=== PATIENT | female | born 1965 | race Caucasian/White ===

== ENCOUNTER 2017-10-21 08:09 | Emergency (ER) | payer OTHER ==
[2017-10-21] MEDS ORDERED: CYCLOBENZAPRINE 10 MG TAB ONE (09:09)
--- NOTE | 2017-10-21 09:11 | EDPHYS ---
Physician Documentation [facility] Name: Ariella Alexadnre Age: 52 yrs Sex: Female : 1965 Arrival Date: 10/21/2017 Time: 08:13 Bed 14 Private MD: Zachary Chacon E ED Physician Terrence Montoya HPI: 10/21 08:42 This 52 yrs old Female presents to ER via Ambulatory with complaints of Back rn Pain. 08:42 The patient presents with pain that is chronic. The symptoms are located in the low rn back. Onset: The symptoms/episode began/occurred 4 day(s) ago. The pain does not radiate. Associated signs and symptoms: Pertinent positives: none Pertinent negatives: abdominal pain, constipation, dysuria, fever, hematuria, incontinence, nausea, numbness, tingling, urinary retention, vomiting, weakness. Severity of symptoms: At their worst the symptoms were moderate, in the emergency department the symptoms are unchanged. The patient has experienced similar episodes in the past. Reports happens from time to time, + chronic back pain, worse over last few days, no new trauma, no fever, no IV drug use, no radiation to right leg, no bowel/bladder complaints. 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 - Social history:: Smoking status: Patient uses tobacco products, Patient/guardian denies using alcohol. - Ebola Screening: : Patient negative for fever greater than or equal to 101.5 degrees Fahrenheit, and additional compatible Ebola Virus Disease symptoms Patient denies exposure to infectious person Patient denies travel to an Ebola-affected area in the 21 days before illness onset. - Family history:: not pertinent. - Hospitalizations: : No recent hospitalization is reported. ROS: 08:42 Constitutional: Negative for fever, chills, and weight loss, Eyes: Negative for injury, rn pain, redness, and discharge, Neck: Negative for injury, pain, and swelling, Cardiovascular: Negative for chest pain, palpitations, and edema, Respiratory: Negative for shortness of breath, cough, wheezing, and pleuritic chest pain, Abdomen/GI: Negative for abdominal pain, nausea, vomiting, diarrhea, and constipation, Back: Negative for injury MS/Extremity: Negative for injury and deformity, Skin: Negative for injury, rash, and discoloration, Neuro: Negative for headache, weakness, numbness, tingling, and seizure. Exam: 08:42 Constitutional: This is a well developed, well nourished patient who is awake, alert, rn and in no acute distress. Back: No spinal tenderness. + right perilumbar tenderness, no bony tenderness MS/ Extremity: Pulses equal, no cyanosis. Neurovascular intact. Full, normal range of motion. Equal circumference. Neuro: Awake and alert, GCS 15, oriented to person, place, time, and situation. Cranial nerves II-XII grossly intact. Motor strength 5/5 in all extremities. Sensory grossly intact. Vital Signs: 08:19 BP 107 / 66; Pulse 65; Resp 18; Temp 97.5(O); Pulse Ox 97% on R/A; Weight 108.86 kg; hj Height 5 ft. 7 in. (170.18 cm); Pain 8/10; 08:19 Body Mass Index 37.59 (108.86 kg, 170.18 cm) hj MDM: 08:22 Patient medically screened. rn 09:10 Differential diagnosis: chronic back pain, Fatigue muscle spasm. Data reviewed: vital rn signs, nurses notes, lab test result(s), and as a result, I will discharge patient. Counseling: I had a detailed discussion with the patient and/or guardian regarding: the historical points, exam findings, and any diagnostic results supporting the discharge/admit diagnosis, the need for outpatient follow up, to return to the emergency department if symptoms worsen or persist or if there are any questions or concerns that arise at home. Special discussion: I discussed with the patient/guardian in detail that at this point there is no indication for admission to the hospital. It is understood, however, that if the symptoms persist or worsen the patient needs to return immediately for re-evaluation. 10/21 08:53 Order name: Urine Dipstick--Ancillary (enter results); Complete Time: 09:45 ag 10/21 08:53 Order name: Urine --Ancillary (enter results); Complete Time: 09:45 ag Administered Medications: 09:10 Drug: Flexeril 10 mg Route: PO; ae1 09:22 Drug: Demerol 25 mg Route: IM; Site: right gluteus; ae1 Disposition: 10/21/17 09:10 Discharged to Home. Impression: Muscle spasm of back. - Condition is Stable. - Discharge Instructions: Muscle Cramps and Spasms. - Prescriptions for Ibuprofen 800 mg Oral Tablet - take 1 tablet by ORAL route every 12 hours As needed take with food; 20 tablet. Cyclobenzaprine 10 mg Oral Tablet - take 1 tablet by ORAL route every 8 hours As needed; 15 tablet. Medrol (Alfred) 4 mg Oral Tablets, Dose Pack - take 1 tablet by ORAL route as directed - follow package instructions; 1 packet. - Medication Reconciliation Form, Thank You Letter, Antibiotic Education, Prescription Opioid Use form. - Follow up: Private Physician; When: As needed; Reason: Recheck today's complaints, Re-evaluation by your physician. - Problem is chronic. - Symptoms have improved. Signatures: Dispatcher [employer] EDTerrence Morejon MD MD rn Joaquin, Henry, RN RN hj Elliott, Andrea, RN RN ae1 Corrections: (The following items were deleted from the chart) 10:05 09:10 10/21/2017 09:10 Discharged to Home. Impression: Muscle spasm of back. Condition ae1 is Stable. Forms are Medication Reconciliation Form, Thank You Letter, Antibiotic Education, Prescription Opioid Use. Follow up: Private Physician; When: As needed; Reason: Recheck today's complaints, Re-evaluation by your physician. Problem is chronic. Symptoms have improved. rn
--- NOTE | 2017-10-21 09:11 | ER ---
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 Transition of care: patient was not received from another setting of care. Onset of symptoms was October 21, 2017. Risk Assessment: Do you want to hurt yourself or someone else? Patient reports no desire to harm self or others. Initial Sepsis Screen: Does the patient meet any 2 criteria? No. Patient's initial sepsis screen is negative. Does the patient have a suspected source of infection? No. Patient's initial sepsis screen is negative. Care prior to arrival: None. 08:14 Method Of Arrival: Ambulatory 08:14 Acuity: DAHIANA 4 hj Triage Assessment: 08:18 General: Appears in no apparent distress. uncomfortable, Behavior is calm, cooperative, hj appropriate for age. Pain: Complains of pain in left low back and right low back. Musculoskeletal: Circulation, motion, and sensation intact. Capillary refill. 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 - Social history:: Smoking status: Patient uses tobacco products, Patient/guardian denies using alcohol. - Ebola Screening: : Patient negative for fever greater than or equal to 101.5 degrees Fahrenheit, and additional compatible Ebola Virus Disease symptoms Patient denies exposure to infectious person Patient denies travel to an Ebola-affected area in the 21 days before illness onset. - Family history:: not pertinent. - Hospitalizations: : No recent hospitalization is reported. Screenin:18 Abuse screen: Denies threats or abuse. Denies injuries from another. Nutritional hj screening: No deficits noted. Tuberculosis screening: No symptoms or risk factors identified. Fall Risk None identified. Assessment: 08:20 General: Appears uncomfortable, obese, Behavior is calm, cooperative. Pain: Complains ae1 of pain in right mid back and right low back Pain currently is 10 out of 10 on a pain scale. Neuro: Level of Consciousness is awake, alert, obeys commands. Cardiovascular: Patient's skin is warm and dry. Respiratory: Airway is patent Respiratory effort is even, unlabored, Respiratory pattern is regular, symmetrical. GI: Abdomen is round obese. : No signs and/or symptoms were reported regarding the genitourinary system. EENT: No signs and/or symptoms were reported regarding the EENT system. Derm: Skin is normal. Musculoskeletal: Reports pain in right mid back and right low back no visible swelling, redness. Vital Signs: 08:19 BP 107 / 66; Pulse 65; Resp 18; Temp 97.5(O); Pulse Ox 97% on R/A; Weight 108.86 kg; hj Height 5 ft. 7 in. (170.18 cm); Pain 8/10; 08:19 Body Mass Index 37.59 (108.86 kg, 170.18 cm) ED Course: 08:13 Patient arrived in ED. mr 08:13 Zachary Chacon MD is Private Physician. mr 08:16 Triage completed. hj 08:19 Arm band placed on left wrist. hj 08:21 Daniel Lopez RN is Primary Nurse. ae1 08:21 Patient has correct armband on for positive identification. Bed in low position. Call light in reach. Side rails up X 1. 08:22 Terrence Montoya MD is Attending Physician. rn 08:55 Urine --Ancillary (enter results) Sent. 5 08:55 Urine Dipstick--Ancillary (enter results) Sent. 5 09:04 Urine collected: clean catch specimen, cloudy. 5 09:55 No provider procedures requiring assistance completed. Patient did not have IV access ae1 during this emergency room visit. Administered Medications: : Drug: Flexeril 10 mg Route: PO; ae1 09:22 Drug: Demerol 25 mg Route: IM; Site: right gluteus; ae1 Outcome: : Discharge ordered by . rn 09:55 Discharged to home via wheelchair. ae1 :55 Condition: stable 09:55 Discharge instructions given to patient, Instructed on discharge instructions, follow up and referral plans. medication usage, Demonstrated understanding of instructions, Prescriptions given X 3. 10:05 Patient left the ED. ae1 Signatures: Daisy Beck Roman, MD MD rn Joaquin, Henry, RN RN hj Elliott, Andrea, RN RN 1 Daisy Mata [facility]
[2017-10-21] MEDS ORDERED: MEPERIDINE HCL 25 MG/0.5 ML ONE (09:18)
[2017-10-21 09:35] LABS: Urine Blood TRACE (NEG); Urine Glucose NEGATIVE (NEG); Urine Protein NEGATIVE (NEG); Urine Specific Gravity 1.025 (1.005-1.030)
[2017-10-21 10:09] VITALS: BP 107/66; TEMP 97.5; O2SAT 97
== END 2017-10-21 10:05 | disposition home or self-care (01) ==
LOC: ER 08:09
DX: M62.830 Muscle spasm of back (principal); I10 Essential (primary) hypertension; F17.200 Nicotine dependence, unspecified, uncomplicated; Z88.6 Allergy status to analgesic agent
CPT/HCPCS: 81003; 81025; 96372; 99283; J2175

== ENCOUNTER 2018-02-24 16:45 | Emergency (ER) | payer OTHER ==
[2018-02-24] MEDS ORDERED: MORPHINE 4 MG/ML SYR ONE (18:39)
[2018-02-24] MEDS ORDERED: CEFTRIAXONE/SWI 1gm 1 GM/10 ML SYR ONE (18:39)
[2018-02-24] MEDS ORDERED: ONDANSETRON 4 MG/2 ML VIAL ONE (18:39)
--- NOTE | 2018-02-24 18:49 | RAD REPORT ---
EXAM DESCRIPTION: CT - Stone Protocol - 02/24/2018 6:33 pm CLINICAL HISTORY: Abdominal pain. Left flank pain for 1 week COMPARISON: 2011 TECHNIQUE: Computed axial tomography of the abdomen pelvis was obtained without oral or IV contrast. Lack of IV and oral contrast limits evaluation of solid organs, bowel, and vessels. Coronal reformat sara images were obtained and reviewed. All CT scans are performed using dose optimization technique as appropriate and may include automated exposure control or mA/KV adjustment according to patient size. FINDINGS: A renal calculus is not seen. An ureteral calculus is not noted. A bladder calculus is not present. Minimal left hydronephrosis or small parapelvic cysts. The liver, spleen, pancreas and adrenals appear grossly normal There is no evidence of diverticulitis. An adnexal mass is not seen. Small umbilical hernia. IMPRESSION: Negative for a genitourinary calculus Minimal left hydronephrosis versus small parapelvic cysts
[2018-02-24 19:12] LABS: Urine Blood TRACE (NEG); Urine Glucose NEGATIVE (NEG); Urine Protein NEGATIVE (NEG); Urine pH 5.5 (5.0-7.0)
[2018-02-24] MEDS ORDERED: DIPHENHYDRAMINE 25 MG TAB/CAP ONE (19:48)
[2018-02-24 19:56] LABS: Absolute Lymphocytes (CBC) 2.3 K/uL (0.7-4.9); Absolute Monocytes 0.5 K/uL (0.1-1.3); Absolute Neutrophil 4.3 K/uL (1.8-8.0); Basophils % 0.4 % (0-1.3); Eosinophils % 3.6 % (0-4.4); Hematocrit 39.3 % (36.0-45.0); MCH 32.1 pg (27.0-35.0); MCV 93.5 fL (80-100); MPV 8.7 fL (7.6-11.3); Monocytes % 6.6 % (3.3-12.3)
[2018-02-24 20:22] LABS: Albumin 3.9 g/dL (3.4-5.0); Bilirubin Direct 0.1 mg/dL (0-0.2); Bilirubin Total 0.3 mg/dL (0.2-1.0); Potassium 3.6 mmol/L (3.5-5.1)
[2018-02-24 22:02] LABS: Urine Bacteria 20-50 /HPF (<20); Urine Culture Reflex Order REFLEXED; Urine RBC NONE SEEN /HPF (NONE SEEN)
--- NOTE | 2018-02-24 22:25 | EDPHYS ---
Physician Documentation [facility] Name: Ariella Alexandre Age: 52 yrs Sex: Female : 1965 Arrival Date: 02/24/2018 Time: 16:47 Bed 24 Private MD: Zachary Chacon E ED Physician Leodan Case HPI: 02/24 22:21 This 52 yrs old Female presents to ER via Ambulatory with complaints of Flank gs Pain. 22:21 The patient complains of pain in the left low back. Onset: The symptoms/episode gs began/occurred 1 week(s) ago. Associated signs and symptoms: Pertinent positives: nausea, Pertinent negatives: fever. Severity of pain: At its worst the pain was moderate in the emergency department the pain is unchanged. The patient has experienced similar episodes in the past, a few times. The patient has been recently seen by a physician: the patient's primary care provider, with similar presenting complaints. 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 - Social history:: Smoking status: Patient uses tobacco products, smokes one-half pack cigarettes per day. - Ebola Screening: : Patient negative for fever greater than or equal to 101.5 degrees Fahrenheit, and additional compatible Ebola Virus Disease symptoms Patient denies exposure to infectious person Patient denies travel to an Ebola-affected area in the 21 days before illness onset No symptoms or risks identified at this time. ROS: 22:21 All other systems are negative. gs 02/25 13:47 Constitutional: Negative for fever, chills, and weight loss. kdr Exam: 02/24 22:21 Chest/axilla: Normal chest wall appearance and motion. Nontender with no deformity. gs No lesions are appreciated. Cardiovascular: Regular rate and rhythm with a normal S1 and S2. No gallops, murmurs, or rubs. Normal PMI, no JVD. No pulse deficits. Respiratory: Lungs have equal breath sounds bilaterally, clear to auscultation and percussion. No rales, rhonchi or wheezes noted. No increased work of breathing, no retractions or nasal flaring. Abdomen/GI: Soft, non-tender, with normal bowel sounds. No distension or tympany. No guarding or rebound. No evidence of tenderness throughout. Skin: Warm, dry with normal turgor. Normal color with no rashes, no lesions, and no evidence of cellulitis. MS/ Extremity: Pulses equal, no cyanosis. Neurovascular intact. Full, normal range of motion. Neuro: Awake and alert, GCS 15, oriented to person, place, time, and situation. Cranial nerves II-XII grossly intact. Motor strength 5/5 in all extremities. Sensory grossly intact. Cerebellar exam normal. Normal gait. Constitutional: The patient appears in no acute distress, alert, awake. Back: CVA tenderness, that is moderate, is noted on the left. Vital Signs: 16:52 BP 128 / 51; Pulse 77; Resp 20; Temp 98.3; Pulse Ox 99% on R/A; Weight 105.69 kg; aj Height 5 ft. 7 in. (170.18 cm); 19:54 BP 119 / 65; Pulse 65; Resp 18; Pulse Ox 98% on R/A; tl3 21:26 BP 114 / 64; Pulse 64; Resp 20; Pulse Ox 97% ; tl3 22:39 BP 120 / 80; Pulse 64; Resp 18; Pulse Ox 98% on R/A; tl3 16:52 Body Mass Index 36.49 (105.69 kg, 170.18 cm) aj MDM: 19:15 Patient medically screened. gs 22:21 Differential diagnosis: nephrolithiasis, pyelonephritis, UTI. Data reviewed: vital gs signs, nurses notes. Counseling: I had a detailed discussion with the patient and/or guardian regarding: the historical points, exam findings, and any diagnostic results supporting the discharge/admit diagnosis, lab results, radiology results, the need for outpatient follow up, a urologist. Response to treatment: the patient's symptoms have markedly improved after treatment, and as a result, I will discharge patient. 02/24 18:16 Order name: Basic Metabolic Panel; Complete Time: 20:38 kdr 02/24 18:16 Order name: CBC with Diff; Complete Time: 20:38 kdr 02/24 18:16 Order name: Creatinine for Radiology; Complete Time: 20:38 kdr 02/24 18:16 Order name: Hepatic Function; Complete Time: 20:38 kdr 02/24 18:16 Order name: Lipase; Complete Time: 20:38 kdr 02/24 18:26 Order name: Urine Dipstick--Ancillary (enter results) bd 02/24 18:16 Order name: CT Stone Protocol; Complete Time: 19:01 kdr 02/24 18:35 Order name: Urine Dipstick-Ancillary; Complete Time: 20:38 EDMS 02/24 20:44 Order name: Urine Microscopic Only; Complete Time: 22:20 gs 02/24 18:16 Order name: IV Saline Lock; Complete Time: 19:47 kdr 02/24 18:16 Order name: Labs collected and sent; Complete Time: 19:47 kdr Administered Medications: 19:45 Drug: morphine 4 mg Route: IVP; Infused Over: 2 mins; Site: right wrist; tl3 19:57 Follow up: Response: No adverse reaction tl3 19:45 Drug: Zofran 4 mg Route: IVP; Infused Over: 2 mins; Site: right wrist; tl3 19:57 Follow up: Response: No adverse reaction tl3 19:46 Drug: Rocephin - (cefTRIAXone) 1 grams Route: IVPB; Infused Over: 5 mins; Site: right tl3 wrist; Delivery: Primary tubing; 19:46 Follow up: IV Status: Completed infusion; IV Intake: 20ml tl3 19:47 Drug: Benadryl 50 mg Route: PO; tl3 19:57 Follow up: Response: No adverse reaction tl3 22:43 Drug: TORadol 30 mg Route: IVP; Infused Over: 1 mins; Site: right wrist; tl3 22:43 Follow up: Response: Medication administered at discharge. tl3 Disposition: 02/24/18 22:24 Discharged to Home. Impression: Acute tubulo-interstitial nephritis. - Condition is Stable. - Discharge Instructions: Pyelonephritis, Adult. - Prescriptions for Keflex 500 mg Oral Capsule - take 1 capsule by ORAL route 3 times per day for 7 days; 21 capsule. - Medication Reconciliation Form, Thank You Letter, Antibiotic Education, Prescription Opioid Use form. - Follow up: Private Physician; When: 2 - 3 days; Reason: Re-evaluation by your physician. Follow up: Malou Medina MD; When: 2 - 3 days; Reason: Re-evaluation by your physician. Signatures: Dispatcher [employer] EDMS Susan Bonilla RN RN Alessio Ponce MD MD [facility] Leodan Case MD MD gs Lowrey, Tammy, RN RN tl3 Corrections: (The following items were deleted from the chart) 22:44 22:24 02/24/2018 22:24 Discharged to Home. Impression: Acute tubulo-interstitial tl3 nephritis. Condition is Stable. Forms are Medication Reconciliation Form, Thank You Letter, Antibiotic Education, Prescription Opioid Use. Follow up: Private Physician; When: 2 - 3 days; Reason: Re-evaluation by your physician. Follow up: Malou Medina; When: 2 - 3 days; Reason: Re-evaluation by your physician.
--- NOTE | 2018-02-24 22:25 | ER ---
Nurse's Notes [facility] Name: Ariella Alexandre Age: 52 yrs Sex: Female : 1965 Arrival Date: 02/24/2018 Time: 16:47 Bed 24 Private MD: Zachary Chacon E Diagnosis: Acute tubulo-interstitial nephritis Presentation: 02/24 16:50 Presenting complaint: Patient states: Left flank pain for 1 week. Seen by PCP Thursday, aj CT in AM. Transition of care: patient was not received from another setting of care. Onset of symptoms was January 17, 2018. Risk Assessment: Do you want to hurt yourself or someone else? Patient reports no desire to harm self or others. Initial Sepsis Screen: Does the patient meet any 2 criteria? No. Patient's initial sepsis screen is negative. Does the patient have a suspected source of infection? No. Patient's initial sepsis screen is negative. Care prior to arrival: None. 16:50 Method Of Arrival: Ambulatory aj 16:50 Acuity: DAHIANA 3 aj Triage Assessment: 16:52 General: Appears in no apparent distress. comfortable, Behavior is calm, cooperative, aj appropriate for age. Pain: Complains of pain in posterior aspect of left lateral abdomen and anterior aspect of left lateral abdomen. Neuro: Level of Consciousness is awake, alert, obeys commands, Oriented to person, place, time, situation, Appropriate for age. Respiratory: Airway is patent Respiratory effort is even, unlabored, Respiratory pattern is regular, symmetrical. : Reports pain in left flank(s). Derm: Skin is intact, is healthy with good turgor, Skin is pink, warm \T\ dry. normal. 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 - Social history:: Smoking status: Patient uses tobacco products, smokes one-half pack cigarettes per day. - Ebola Screening: : Patient negative for fever greater than or equal to 101.5 degrees Fahrenheit, and additional compatible Ebola Virus Disease symptoms Patient denies exposure to infectious person Patient denies travel to an Ebola-affected area in the 21 days before illness onset No symptoms or risks identified at this time. Screenin:12 Abuse screen: Denies threats or abuse. Nutritional screening: No deficits noted. tl3 Tuberculosis screening: No symptoms or risk factors identified. Fall Risk None identified. Assessment: 18:12 General: Appears uncomfortable, well groomed, well developed, well nourished, Behavior tl3 is calm, cooperative, appropriate for age. Pain: Complains of pain in abdomen and anterior aspect of left lateral abdomen and posterior aspect of left lateral abdomen. Neuro: Level of Consciousness is awake, alert, obeys commands, Oriented to person, place, time, situation, Appropriate for age. Cardiovascular: Patient's skin is warm and dry. Respiratory: Airway is patent Respiratory effort is even, unlabored, Respiratory pattern is regular, symmetrical. GI: No signs and/or symptoms were reported involving the gastrointestinal system. : No signs and/or symptoms were reported regarding the genitourinary system. Urine is clear. EENT: No signs and/or symptoms were reported regarding the EENT system. Derm: No signs and/or symptoms reported regarding the dermatologic system. Musculoskeletal: No signs and/or symptoms reported regarding the musculoskeletal system. 19:54 Reassessment: No changes from previously documented assessment. Patient and/or family tl3 updated on plan of care and expected duration. Pain level reassessed. 21:26 Reassessment: Patient appears in no apparent distress at this time. No changes from tl3 previously documented assessment. Patient and/or family updated on plan of care and expected duration. Pain level reassessed. Patient is alert, oriented x 3, equal unlabored respirations, skin warm/dry/pink. 22:39 Reassessment: No changes from previously documented assessment. Patient and/or family tl3 updated on plan of care and expected duration. Pain level reassessed. Patient is alert, oriented x 3, equal unlabored respirations, skin warm/dry/pink. Dr Case at bedside discussing POC. Vital Signs: 16:52 BP 128 / 51; Pulse 77; Resp 20; Temp 98.3; Pulse Ox 99% on R/A; Weight 105.69 kg; aj Height 5 ft. 7 in. (170.18 cm); 19:54 BP 119 / 65; Pulse 65; Resp 18; Pulse Ox 98% on R/A; tl3 21:26 BP 114 / 64; Pulse 64; Resp 20; Pulse Ox 97% ; tl3 22:39 BP 120 / 80; Pulse 64; Resp 18; Pulse Ox 98% on R/A; tl3 16:52 Body Mass Index 36.49 (105.69 kg, 170.18 cm) aj ED Course: 16:47 Patient arrived in ED. mr 16:48 Zachary Chacon MD is Private Physician. mr 16:51 Triage completed. aj 16:52 Arm band placed on left wrist. Patient placed in waiting room, Patient notified of wait aj time. 17:52 Alessio Tabares MD is Attending Physician. kdr 18:12 Nubia Azar, DECLAN is Primary Nurse. tl3 18:12 ED physician to see patient. DR Tabares at bedside for assessment. tl3 18:12 Patient has correct armband on for positive identification. Bed in low position. Call tl3 light in reach. Side rails up X 1. Adult w/ patient. Pulse ox on. NIBP on. 18:12 No provider procedures requiring assistance completed. tl3 18:[address] 18:32 CT completed. Patient tolerated procedure well. Patient moved back from CT. vm2 18:35 CT Stone Protocol In Process Unspecified. EDMS 18:55 Missed attempt(s): 24 gauge in left forearm. antecubital area. Bleeding controlled, jp3 band aid applied, catheter tip intact. 19:01 Attending Physician role handed off by Alessio Tabares MD gs 19:01 Leodan Case MD is Attending Physician. gs 19:44 Urine Dipstick--Ancillary (enter results) Sent. tl3 19:54 Initial lab(s) drawn, by mo, sent to lab. Inserted saline lock: 24 gauge in right tl3 wrist, using aseptic technique. Blood collected. 22:24 Malou Medina MD is Referral Physician. gs 22:39 IV discontinued, intact, bleeding controlled, No redness/swelling at site. Pressure tl3 dressing applied. Administered Medications: 19:45 Drug: morphine 4 mg Route: IVP; Infused Over: 2 mins; Site: right wrist; tl3 19:57 Follow up: Response: No adverse reaction tl3 19:45 Drug: Zofran 4 mg Route: IVP; Infused Over: 2 mins; Site: right wrist; tl3 19:57 Follow up: Response: No adverse reaction tl3 19:46 Drug: Rocephin - (cefTRIAXone) 1 grams Route: IVPB; Infused Over: 5 mins; Site: right tl3 wrist; Delivery: Primary tubing; 19:46 Follow up: IV Status: Completed infusion; IV Intake: 20ml tl3 19:47 Drug: Benadryl 50 mg Route: PO; tl3 19:57 Follow up: Response: No adverse reaction tl3 22:43 Drug: TORadol 30 mg Route: IVP; Infused Over: 1 mins; Site: right wrist; tl3 22:43 Follow up: Response: Medication administered at discharge. tl3 Intake: 19:46 IV: 20ml; Total: 20ml. tl3 Outcome: 22:24 Discharge ordered by . 22:39 Discharged to home ambulatory. tl3 22:39 Condition: stable 22:39 Discharge instructions given to patient, Instructed on discharge instructions, follow up and referral plans. medication usage, Demonstrated understanding of instructions, follow-up care, medications, Prescriptions given X 1. 22:44 Patient left the ED. tl3 Signatures: Dispatcher [employer] Susan Zamudio RN RN aj Rittger, Kevin, MD MD kdr Rivera, Mary mr Hagler, Ervin eh McGuire, Victoria 2 Leodan Case MD MD gs Lowrey, Tammy, RN RN tl3 Izaiah Shirley jp3 Corrections: (The following items were deleted from the chart) 19:55 19:54 Missed attempt(s): 24 gauge in left forearm. antecubital area. Bleeding jp3 controlled, band aid applied, catheter tip intact. jp3
[2018-02-24] MEDS ORDERED: KETOROLAC 30 MG/ML INJ ONE (22:37)
[2018-02-24 23:32] VITALS: TEMP 98.3
[2018-02-24 23:37] VITALS: BP 120/80; O2SAT 98
== END 2018-02-24 22:44 | disposition home or self-care (01) ==
LOC: ER 16:45
DX: N10 Acute pyelonephritis (principal); I10 Essential (primary) hypertension; F17.210 Nicotine dependence, cigarettes, uncomplicated; Z79.82 Long term (current) use of aspirin; Z88.5 Allergy status to narcotic agent
CPT/HCPCS: 36415; 74176; 76377; 80048; 80076; 83690; 85025; 96374; 96375; 99284; J0696; J2405; 81003; 81015

== ENCOUNTER 2018-11-28 12:43 | Emergency (ER) | payer OTHER ==
--- OUTSIDE RECORDS SUMMARY | 2018-11-28 12:46 | XMS REPORT ---
:1965 [facility] Address [address] [place] [address] Dr. Alejo. [address] [place] [id number] Care Team Providers Name Role Phone Unavailable Unavailable Unavailable Problems This patient has no known problems. Allergies, Adverse Reactions, Alerts This patient has no known allergies or adverse reactions. Medications This patient has no known medications.
--- OUTSIDE RECORDS SUMMARY | 2018-11-28 12:46 | XMS REPORT | Summary of Care ---
:1965 Author Organization [facility] Address [address] [place] [id number] Care Team Providers Name Role Phone 1, Adc Lab Unavailable Unavailable Florinda Leal [facility] Primary Care Provider Reason for Referral MRI/CAT Scan (Routine) Status Reason Specialty Diagnoses / Referred By Referred To Procedures Contact Contact Closed Diagnostic Diagnoses Dizziness Nia Payton, Radiology Procedures MR BRAIN W WO CONTRAST [address] [place] [address] MRI/CAT Scan (Routine) Status Reason Specialty Diagnoses / Referred By Referred To Procedures Contact Contact Closed Diagnostic Diagnoses Dizziness Nia Payton, Radiology Procedures MR BRAIN W WO CONTRAST [address] [place] [address] Reason for Visit MRI/CAT Scan (Routine) Status Reason Specialty Diagnoses / Referred By Referred To Procedures Contact Contact Closed Diagnostic Diagnoses Dizziness Nia Payton, Radiology Procedures MR BRAIN W CHERRY CONTRAST [address] [place] [address] Encounter Details Date Type Department Care Team Description 11/18/2018 Hospital Encounter [facility] Nia Payton, [facility] MRI [address] [id number] [phone] Allergies Active Allergy Reactions Severity Noted Date Comments Codeine Rash 07/29/2012 documented as of this encounter (statuses as of 11/19/2018) Medications Medication Sig Dispensed Refills Start Date End Date Status atenolol (TENORMIN) 25 Take 25 mg by 0 Active mg tablet mouth daily. esomeprazole (NEXIUM) 40 Take 40 mg by 0 Active mg capsule mouth daily with breakfast. aspirin 81 mg chewable Take 81 mg by 0 Active tablet mouth daily. OLMESARTAN/AMLODIPIN/HCT Take by mouth. 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 documented as of this encounter Last Filed Vital Signs Vital Sign Reading Time Taken Comments Blood Pressure 115/48 11/18/2018 11:25 AM CDT Pulse 59 11/18/2018 11:25 AM CDT Temperature - - Respiratory Rate 18 11/18/2018 11:25 AM CDT Oxygen Saturation 98% 11/18/2018 11:25 AM CDT Inhaled Oxygen Concentration - - Weight 104.3 kg (230 lb) 11/18/2018 11:25 AM CDT Height - - Body Mass Index 36.02 11/01/2018 11:21 AM CDT documented in this encounter Plan of Treatment Health Maintenance Due Date Last Done Comments HEPATITIS C (HCV) SCREEN 1965 PNEUMOCOCCAL 0-64 YEARS COMBINED 1969 SERIES (1 of 1 - PPSV23) DTaP,Tdap,and Td Vaccines (1 - 2004 04/13/2004 Tdap) COLONOSCOPY 2013 Zoster Recombinant Vaccine 2013 (SHINGRIX) (1 of 2) LUNG CANCER SCREEN: Recommended 2018 for age 55-80 with 30 + pack year history INFLUENZA VACCINE 12/12/2018 MAMMOGRAM 06/10/2019 06/10/2018 PAP SMEAR 05/27/2021 05/27/2018, 07/29/2012, 06/22/2009, Additional history exists documented as of this encounter Procedures Procedure Name Priority Date/Time Associated Diagnosis Comments MR BRAIN W WO Routine 11/18/2018 12:37 PM Dizziness Results for this CONTRAST CDT procedure are in the results section. documented in this encounter Results MR BRAIN W WO CONTRAST (11/18/2018 12:37 PM CDT) Specimen Impressions Performed At PACS/VR/DOSE No acute intracranial abnormality. White matter changes related to chronic small vessel ischemic disease. Trace left mastoid effusion. Akash Espinoza have reviewed this study and agree with the above report. Damaris Espinoza MD., have reviewed this study and agree with the above report. Narrative Performed At * * * * * * * * ORIGINAL REPORT * * * * * * * * PACS/VR/DOSE MR BRAIN W WO CONTRAST COMPARISON: None HISTORY: Neuro deficit(s), subacute; Mild headache, mild positional vertigo, arm pain and right leg numbness (below the knee) per chart review. TECHNIQUE: Multisequence multiplanar MR images of the brain were obtained before and after administration of 20 mL IV Dotarem. FINDINGS: The ventricles and cerebral sulci are normal in caliber and configuration. No midline shift, hydrocephalus or pathological extra-axial fluid collection is present. The basal cisterns are unremarkable. No restricted diffusion is present to suggest acute infarct. Scattered periventricular foci of T2 prolongation are nonspecific but likely reflect small vessel ischemic disease. There is no abnormal parenchymal enhancement. No abnormal gradient blooming. The T2 flow voids for the major intracranial vessels are unremarkable. The paranasal sinuses are clear. Trace left mastoid effusion is noted. Procedure Note [facility], Radiant Results Inft User - 11/18/2018 1:55 PM CDT * * * * * * * * ORIGINAL REPORT * * * * * * * * MR BRAIN W WO CONTRAST COMPARISON: None HISTORY: Neuro deficit(s), subacute; Mild headache, mild positional vertigo, arm pain and right leg numbness (below the knee) per chart review. TECHNIQUE: Multisequence multiplanar MR images of the brain were obtained before and after administration of 20 mL IV Dotarem. FINDINGS: The ventricles and cerebral sulci are normal in caliber and configuration. No midline shift, hydrocephalus or pathological extra-axial fluid collection is present. The basal cisterns are unremarkable. No restricted diffusion is present to suggest acute infarct. Scattered periventricular foci of T2 prolongation are nonspecific but likely reflect small vessel ischemic disease. There is no abnormal parenchymal enhancement. No abnormal gradient blooming. The T2 flow voids for the major intracranial vessels are unremarkable. The paranasal sinuses are clear. Trace left mastoid effusion is noted. IMPRESSION No acute intracranial abnormality. White matter changes related to chronic small vessel ischemic disease. Trace left mastoid effusion. Akash Espinoza have reviewed this study and agree with the above report. Akash Espinoza MD., have reviewed this study and agree with the above report. Performing Organization Address City/State/Zipcode Phone Number PACS/VR/DOSE documented in this encounter Visit Diagnoses Diagnosis Dizziness Dizziness and giddiness documented in this encounter Administered Medications Medication Order MAR Action Action Date Dose Rate Site gadoterate meglumine (DOTAREM-20 Given 11/18/2018 12:18 PM CDT 20 mL mL) injection 20.86 mL 20.86 mL (0.2 mL/kg 104.3 kg), Intravenous, ONCE, 1 dose, Hollie 11/18/18 at 1230, Routine LORazepam (ATIVAN) tablet 2 mg Given 11/18/2018 11:29 AM CDT 2 mg 2 mg, Oral, ONCE, 1 dose, Hollie 11/18/18 at 1230, Routine documented in this encounter Insurance Payer Benefit Plan / Subscriber ID Effective Dates Phone Address Type Group MEDICARE MEDICARE PART xxxxxxxxxxx 2004-Janet [phone] 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
[2018-11-28] MEDS ORDERED: CLINDAMYCIN HCL 150 MG CAP ONE (14:44)
[2018-11-28] MEDS ORDERED: KETOROLAC 30 MG/ML INJ ONE (14:44)
--- NOTE | 2018-11-28 14:52 | EDPHYS ---
Physician Documentation [facility] Name: Ariella Alexandre Age: 53 yrs Sex: Female : 1965 Arrival Date: 11/28/2018 Time: 12:46 Bed 20 Private MD: ED Physician Leodan Case HPI: 11/28 14:41 This 53 yrs old Female presents to ER via Ambulatory with complaints of Jaw snw Swelling. 14:41 The patient presents with broken tooth/teeth, pain. The problem is located in the lower snw left first molar (#19) and lower left second molar (#18) and lower left third molar (#17). Onset: The symptoms/episode began/occurred suddenly, this morning. Duration: The symptoms are continuous. Modifying factors:. Associated signs and symptoms: Pertinent positives: swelling, mandibular, mild pain. The patient has experienced a previous episode. The patient has not recently seen a physician. is having teeth removed and getting dentures. 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 - Social history:: Smoking status: . - Ebola Screening: : Patient denies travel to an Ebola-affected area in the 21 days before illness onset. ROS: 14:39 Constitutional: Negative for fever, chills, and weight loss, Eyes: Negative for injury, snw pain, redness, and discharge, ENT: Negative for injury and discharge, + mandibular edema and pain since this am Neck: Negative for injury, pain, and swelling, Cardiovascular: Negative for chest pain, palpitations, and edema, Respiratory: Negative for shortness of breath, cough, wheezing, and pleuritic chest pain, Abdomen/GI: Negative for abdominal pain, nausea, vomiting, diarrhea, and constipation, Back: Negative for injury and pain, : Negative for injury, bleeding, discharge, and swelling, MS/Extremity: Negative for injury and deformity, Skin: Negative for injury, rash, and discoloration, Neuro: Negative for headache, weakness, numbness, tingling, and seizure, Psych: Negative for depression, anxiety, suicide ideation, homicidal ideation, and hallucinations. Exam: 14:34 Constitutional: This is a well developed, well nourished patient who is awake, alert, snw and in no acute distress. 14:34 Eyes: Pupils equal round and reactive to light, extra-ocular motions intact. Lids and lashes normal. Conjunctiva and sclera are non-icteric and not injected. Cornea within normal limits. Periorbital areas with no swelling, redness, or edema. 14:34 Neck: Trachea midline, no thyromegaly or masses palpated, and no cervical lymphadenopathy. Supple, full range of motion without nuchal rigidity, or vertebral point tenderness. No Meningismus. Chest/axilla: Normal chest wall appearance and motion. Nontender with no deformity. No lesions are appreciated. Cardiovascular: Regular rate and rhythm with a normal S1 and S2. No gallops, murmurs, or rubs. Normal PMI, no JVD. No pulse deficits. Respiratory: Lungs have equal breath sounds bilaterally, clear to auscultation and percussion. No rales, rhonchi or wheezes noted. No increased work of breathing, no retractions or nasal flaring. Abdomen/GI: Soft, non-tender, with normal bowel sounds. No distension or tympany. No guarding or rebound. No evidence of tenderness throughout. Back: No spinal tenderness. No costovertebral tenderness. Full range of motion. Skin: Warm, dry with normal turgor. Normal color with no rashes, no lesions, and no evidence of cellulitis. MS/ Extremity: Pulses equal, no cyanosis. Neurovascular intact. Full, normal range of motion. Neuro: Awake and alert, GCS 15, oriented to person, place, time, and situation. Cranial nerves II-XII grossly intact. Motor strength 5/5 in all extremities. Sensory grossly intact. Cerebellar exam normal. Normal gait. Psych: Awake, alert, with orientation to person, place and time. Behavior, mood, and affect are within normal limits. 14:34 Head/face: Noted is swelling, that is moderate, of the left cheek. 14:44 ENT: External ear(s): are unremarkable, Ear canal(s): are normal, TM's: are normal, snw Nose: is normal, Mouth: is normal, Posterior pharynx: Dental exam: dental caries, that is severe, diffusely, gum swelling, that is moderate, specifically in the lower left first molar (#19) and lower left second molar (#18) and lower left third molar (#17), pain, Voice: is normal. Vital Signs: 13:05 BP 116 / 62; Pulse 72; Resp 17; Temp 97.5(TE); Pulse Ox 96% on R/A; Weight 104.33 kg; tw2 Height 5 ft. 7 in. (170.18 cm) (R); Pain 7/10; 14:24 BP 112 / 57; Pulse 70; Resp 16 S; Pulse Ox 96% on R/A; ca1 13:05 Body Mass Index 36.02 (104.33 kg, 170.18 cm) tw2 MDM: 14:26 Patient medically screened. snw 14:55 Data reviewed: vital signs, nurses notes. Data interpreted: Pulse oximetry: on room air snw is 96 %. Interpretation: acceptable. Counseling: I had a detailed discussion with the patient and/or guardian regarding: the historical points, exam findings, and any diagnostic results supporting the discharge/admit diagnosis, the need for outpatient follow up, to return to the emergency department if symptoms worsen or persist or if there are any questions or concerns that arise at home, smoking cessation. Special discussion: Based on the history and exam findings, there is no indication for further emergent testing or inpatient evaluation. I discussed with the patient/guardian the need to see a dentist for further evaluation of the symptoms. I discussed with the patient/guardian the need to see the primary care provider for further evaluation of the symptoms. Administered Medications: 14:48 Drug: Clindamycin 300 mg Route: PO; ca1 15:00 Follow up: Response: No adverse reaction ca1 14:48 Drug: TORadol 30 mg Route: IM; Site: right deltoid; ca1 15:00 Follow up: Response: No adverse reaction; Pain is decreased ca1 Disposition: 11/28/18 14:50 Discharged to Home. Impression: Dental caries, Acute apical periodontitis of pulpal origin. - Condition is Stable. - Discharge Instructions: Dental Abscess, Dental Pain, Diet and Dental Disease, Preventive Dental Care, Adult. - Prescriptions for Clindamycin HCl 300 mg Oral Capsule - take 1 capsule by ORAL route every 6 hours for 10 days; 40 capsule. Diclofenac Sodium 75 mg Oral Tablet Sustained Release - take 1 tablet by ORAL route 2 times per day; 30 tablet. - Medication Reconciliation Form, Thank You Letter, Antibiotic Education, Prescription Opioid Use form. - Follow up: Private Physician; When: 1 - 2 days; Reason: Recheck today's complaints, Continuance of care, Re-evaluation by your physician. Follow up: Emergency Department; When: As needed; Reason: Worsening of condition. Addendum: 11/30/2018 15:34 Co-signature as Attending Physician, Leodan Case MD. g s Signatures: Kaci Soriano, GUEST EXPERIENCE SPECIALIST-C GUEST EXPERIENCE SPECIALIST-Csnw Argelia Cabello RN RN tw2 Leodan Case MD MD gs Acob, Stephania RN RN ca1 Corrections: (The following items were deleted from the chart) 11/28 14:48 14:34 ENT: Ear canal(s): are normal, TM's: are normal, Nose: is normal, Mouth: is snw normal, Posterior pharynx: is normal, Dental exam: gum swelling, that is moderate, broken teeth to right mandible - broken at gum line (chronic), swelling to right mandible began today, no trismus, no elevation of sublingual area, Voice: is normal, snw 14:57 14:50 11/28/2018 14:50 Discharged to Home. Impression: Dental caries; Acute apical ca1 periodontitis of pulpal origin. Condition is Stable. Forms are Medication Reconciliation Form, Thank You Letter, Antibiotic Education, Prescription Opioid Use. Follow up: Private Physician; When: 1 - 2 days; Reason: Recheck today's complaints, Continuance of care, Re-evaluation by your physician. Follow up: Emergency Department; When: As needed; Reason: Worsening of condition. snw
--- NOTE | 2018-11-28 14:52 | ER ---
Nurse's Notes [facility] Name: Ariella Alexandre Age: 53 yrs Sex: Female : 1965 Arrival Date: 11/28/2018 Time: 12:46 Bed 20 Private MD: Diagnosis: Dental caries;Acute apical periodontitis of pulpal origin Presentation: 11/28 13:04 Presenting complaint: Patient states: i woke up with a swollen jaw, i have a tooth that tw2 abscessed. on the LEFT lower jaw. Transition of care: patient was not received from another setting of care. Onset of symptoms was November 28, 2018. Risk Assessment: Do you want to hurt yourself or someone else? Patient reports no desire to harm self or others. Initial Sepsis Screen: Does the patient meet any 2 criteria? No. Patient's initial sepsis screen is negative. Does the patient have a suspected source of infection? No. Patient's initial sepsis screen is negative. Care prior to arrival: None. 13:04 Method Of Arrival: Ambulatory tw2 13:04 Acuity: DAHIANA 3 tw2 Triage Assessment: 13:05 General: Appears uncomfortable, Behavior is calm, cooperative, appropriate for age. tw2 Pain: Complains of pain in mouth and left jaw. 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 - Social history:: Smoking status: . - Ebola Screening: : Patient denies travel to an Ebola-affected area in the 21 days before illness onset. Screenin:18 Abuse screen: Denies threats or abuse. Denies injuries from another. Nutritional ca1 screening: No deficits noted. Tuberculosis screening: No symptoms or risk factors identified. Fall Risk None identified. Assessment: 14:18 General: Appears in no apparent distress. comfortable, Behavior is calm, cooperative, ca1 appropriate for age. Pain: Complains of pain in left jaw Pain currently is 7 out of 10 on a pain scale. Pain began today. Neuro: Level of Consciousness is awake, alert, obeys commands, Oriented to person, place, time, situation. Cardiovascular: Heart tones S1 S2 present Capillary refill < 3 seconds Patient's skin is warm and dry. Respiratory: Airway is patent Respiratory effort is even, unlabored, Respiratory pattern is regular, symmetrical. GI: Abdomen is round non-distended, Bowel sounds present X 4 quads. Abd is soft and non tender X 4 quads. : No deficits noted. No signs and/or symptoms were reported regarding the genitourinary system. EENT: Oral mucosa is moist. Dental caries noted in lower left third molar (#17), lower left second molar (#18) and lower left first molar (#19) Reports toothache. Derm: Skin is intact, is healthy with good turgor, Skin is pink, warm \T\ dry. Musculoskeletal: Circulation, motion, and sensation intact. Capillary refill < 3 seconds, Range of motion: intact in all extremities. Vital Signs: 13:05 BP 116 / 62; Pulse 72; Resp 17; Temp 97.5(TE); Pulse Ox 96% on R/A; Weight 104.33 kg; tw2 Height 5 ft. 7 in. (170.18 cm) (R); Pain 7/10; 14:24 BP 112 / 57; Pulse 70; Resp 16 S; Pulse Ox 96% on R/A; ca1 13:05 Body Mass Index 36.02 (104.33 kg, 170.18 cm) tw2 ED Course: 12:46 Patient arrived in ED. as 13:05 Triage completed. tw2 13:05 Arm band placed on. tw2 14:01 Stephania Gant, RN is Primary Nurse. ca1 14:18 Patient has correct armband on for positive identification. Bed in low position. Call ca1 light in reach. Side rails up X 1. Pulse ox on. NIBP on. Warm blanket given. 14:20 Kaci Soriano FNP-C is PHCP. snw 14:20 Leodan Case MD is Attending Physician. snw 14:56 No provider procedures requiring assistance completed. Patient did not have IV access ca1 during this emergency room visit. Administered Medications: 14:48 Drug: Clindamycin 300 mg Route: PO; ca1 15:00 Follow up: Response: No adverse reaction ca1 14:48 Drug: TORadol 30 mg Route: IM; Site: right deltoid; ca1 15:00 Follow up: Response: No adverse reaction; Pain is decreased ca1 Outcome: 14:50 Discharge ordered by MD. bender 14:56 Discharged to home ambulatory, with family. ca1 14:56 Condition: stable 14:56 Discharge instructions given to patient, Instructed on discharge instructions, follow up and referral plans. medication usage, Demonstrated understanding of instructions, follow-up care, medications, Prescriptions given X 2. 14:57 Patient left the ED. ca1 Signatures: Kaci Soriano, EXTERNAL RELATIONS DIRECTOR-C EXTERNAL RELATIONS DIRECTOR-Csnw Joelle Mata Tara, RN RN tw2 Stephania Gant RN RN ca1
[2018-11-28 15:24] VITALS: TEMP 97.5; O2SAT 96
[2018-11-28 15:26] VITALS: BP 112/57
== END 2018-11-28 14:57 | disposition home or self-care (01) ==
LOC: ER 12:43
DX: K04.4 Acute apical periodontitis of pulpal origin (principal); I10 Essential (primary) hypertension; K21.9 Gastro-esophageal reflux disease without esophagitis; Z79.82 Long term (current) use of aspirin; Z88.1 Allergy status to other antibiotic agents; Z88.5 Allergy status to narcotic agent
CPT/HCPCS: 96372; 99283

== ENCOUNTER 2018-12-16 15:20 | Observation (INO) | payer OTHER ==
--- OUTSIDE RECORDS SUMMARY | 2018-12-16 15:22 | XMS REPORT ---
:1965 [facility] Address [address] [place] [address] Dr. Alejo. [address] [place] [address] Care Team Providers Name Role Phone Unavailable Unavailable Unavailable Problems This patient has no known problems. Allergies, Adverse Reactions, Alerts This patient has no known allergies or adverse reactions. Medications This patient has no known medications.
--- OUTSIDE RECORDS SUMMARY | 2018-12-16 15:23 | XMS REPORT | Summary of Care ---
:1965 Author Organization [facility] Address [address] [place] [id number] Care Team Providers Name Role Phone 1, Adc Lab Unavailable Unavailable Florinda Leal DAVID Primary Care Provider Reason for Visit Reason Comments Results Encounter Details Date Type Department Care Team Description 11/24/2018 Telephone [facility], Nia Strange MD [address] [phone] Allergies Active Allergy Reactions Severity Noted Date Comments Codeine Rash 07/29/2012 documented as of this encounter (statuses as of 12/08/2018) Medications Medication Sig Dispensed Refills Start Date [...] as of this encounter (statuses as of 12/08/2018) Active Problems Problem Noted Date History of tubal ligation 05/27/2018 Well woman exam 05/27/2018 Contraceptive management 05/27/2018 Menopausal state 05/27/2018 Essential hypertension 07/29/2012 Overview: ICD10 Diagnosis Term Bruise Trimmer Utility Heart palpitations 07/29/2012 Tobacco use disorder 07/29/2012 documented as of this encounter (statuses as of 12/08/2018) Immunizations Name Administration Dates Next Due Td [...] of this encounter Last Filed Vital Signs Not on filedocumented in this encounter Plan of Treatment Health Maintenance Due Date Last Done Comments HEPATITIS C (HCV) SCREEN 1965 PNEUMOCOCCAL 0-64 YEARS COMBINED 1969 SERIES (1 of 1 - PPSV23) DTaP,Tdap,and Td Vaccines (1 - 2004 04/13/2004 Tdap) COLONOSCOPY 2013 Zoster Recombinant Vaccine 2013 (SHINGRIX) (1 of 2) LUNG CANCER SCREEN: Recommended 2018 for age 55-80 with 30 + pack year history INFLUENZA VACCINE (#1) 2018 MAMMOGRAM 06/10/2019 06/10/2018 PAP SMEAR 05/27/2021 05/27/2018, 07/29/2012, 06/22/2009, Additional history exists documented as of this encounter Results Not on filedocumented in this encounter Insurance Payer Benefit Plan / Subscriber ID Effective Dates Phone Address Type Group MEDICARE MEDICARE PART xxxxxxxxxxx 2004-Janet [phone] [address] Medicare [id number] [place] [id number] documented as of this encounter Advance Directives Type Date Recorded Patient Spice Miller Explanation Advance Directives and Living Will Power of Financial Services Auditor
[2018-12-16] MEDS ORDERED: ASPIRIN 81 MG CHEWABLE TABLET ONE (16:02)
[2018-12-16] MEDS ORDERED: NA CHLORIDE 0.9% 500 ML ONE (16:03)
--- NOTE | 2018-12-16 16:55 | EKG ---
Test Date: 2018-12-16 Test Time: 15:28:32 Senior Interactive Producer: CHRISTINE MEASUREMENT RESULTS: Intervals: Rate: 71 PA: 148 QRSD: 80 QT: 384 QTc: 417 [place]: P: 69 PA: 148 QRS: 74 T: 54 INTERPRETIVE STATEMENTS: Normal sinus rhythm Normal ECG Compared to ECG 01/13/2011 20:47:10 No significant changes Electronically Signed On 12-16-18 16:54:21 CDT by Michoacano Newton
[2018-12-16 16:59] LABS: Absolute Lymphocytes (CBC) 2.2 K/uL (0.7-4.9); Basophils % 0.9 % (0-1.3); Hematocrit 38.1 % (36.0-45.0); Lymphocytes % 39.6 % (15.3-44.8); MPV 9.3 fL (7.6-11.3); RBC Red Blood Cell Count 4.12 M/uL (3.86-4.86)
--- NOTE | 2018-12-16 16:59 | RAD REPORT ---
EXAM DESCRIPTION: RAD - Chest Single View - 12/16/2018 4:40 pm CLINICAL HISTORY: CHEST PAIN Chest pain. COMPARISON: CHEST SINGLE VIEW dated 01/13/2011 FINDINGS: Portable technique limits examination quality. The lungs are grossly clear. The heart is normal in size. No displaced fractures. IMPRESSION: No acute intrathoracic process suspected.
[2018-12-16 17:02] LABS: Protime INR 1.07
[2018-12-16 17:28] LABS: BUN Blood Urea Nitrogen 19 mg/dL (7-18); Bicarbonate 25 mmol/L (21-32); Glucose Level 108 mg/dL (74-106); Magnesium 1.9 mg/dL (1.8-2.4); NT PRO-BNP 197 pg/mL (<125); Potassium 3.8 mmol/L (3.5-5.1); Sodium Level 143 mmol/L (136-145); Troponin (Emerg Dept Use Only) < 0.02 ng/mL (0.0-0.045)
--- NOTE | 2018-12-16 17:41 | ER ---
Nurse's Notes [facility] Name: Ariella Alexandre Age: 53 yrs Sex: Female : 1965 Arrival Date: 12/16/2018 Time: 15:22 Bed 23 Private MD: Diagnosis: Chest pain, unspecified Presentation: 12/16 15:30 Presenting complaint: Patient states: chest pain/pressure, radiating into L neck/Jaw/ L ch arm. started yesterday around 2100, but worse today. Transition of care: patient was not received from another setting of care. Onset of symptoms was December 15, 2018 at 21:00. Risk Assessment: Do you want to hurt yourself or someone else? Patient reports no desire to harm self or others. Initial Sepsis Screen: Does the patient meet any 2 criteria? No. Patient's initial sepsis screen is negative. Does the patient have a suspected source of infection? No. Patient's initial sepsis screen is negative. Care prior to arrival: None. 15:30 Method Of Arrival: Ambulatory 15:30 Acuity: DAHIANA 3 ch Triage Assessment: 15:31 General: Appears in no apparent distress. comfortable, Behavior is calm, cooperative, ch appropriate for age. Pain: Complains of pain in left supraclavicular area, left clavicle, anterior aspect of left upper chest, mid-sternal area, left arm and left submandibular area Pain currently is 7 out of 10 on a pain scale. Pain began gradually, 1 day ago. Cardiovascular: Reports chest pain. 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 - Social history:: Smoking status: Patient uses tobacco products, smokes one-half pack cigarettes per day, Patient/guardian denies using alcohol, street drugs. - Ebola Screening: : Patient negative for fever greater than or equal to 101.5 degrees Fahrenheit, and additional compatible Ebola Virus Disease symptoms Patient denies exposure to infectious person Patient denies travel to an Ebola-affected area in the 21 days before illness onset No symptoms or risks identified at this time. - Family history:: not pertinent. - Hospitalizations: : No recent hospitalization is reported. Screenin:40 Abuse screen: Denies threats or abuse. Denies injuries from another. Nutritional ca1 screening: No deficits noted. Tuberculosis screening: No symptoms or risk factors identified. Fall Risk None identified. Assessment: 15:40 General: Appears in no apparent distress. comfortable, Behavior is calm, cooperative, ca1 appropriate for age. Pain: Complains of pain in chest and mid-sternal area and anterior aspect of left upper chest Pain radiates to neck and left arm and left clavicle and left supraclavicular area and left submandibular area Pain currently is 7 out of 10 on a pain scale. Quality of pain is described as pressure, Pain began 1 day ago. Is continuous. Neuro: Level of Consciousness is awake, alert, obeys commands, Oriented to person, place, time, situation. Cardiovascular: Heart tones S1 S2 present Capillary refill < 3 seconds Patient's skin is warm and dry. Pulses are all present. Rhythm is sinus rhythm. Respiratory: Reports shortness of breath on exertion Airway is patent Respiratory effort is even, unlabored, Respiratory pattern is regular, symmetrical, Breath sounds are clear bilaterally. GI: Abdomen is round non-distended, Bowel sounds present X 4 quads. Abd is soft and non tender X 4 quads. Patient currently denies nausea, vomiting. : No deficits noted. No signs and/or symptoms were reported regarding the genitourinary system. EENT: No deficits noted. No signs and/or symptoms were reported regarding the EENT system. Derm: Skin is intact, is healthy with good turgor, Skin is pink, warm \T\ dry. Musculoskeletal: Circulation, motion, and sensation intact. Capillary refill < 3 seconds, Range of motion: intact in all extremities. 16:28 Reassessment: Patient appears in no apparent distress at this time. Patient and/or ca1 family updated on plan of care and expected duration. Pain level reassessed. Patient is alert, oriented x 3, equal unlabored respirations, skin warm/dry/pink. 17:30 Reassessment: Patient appears in no apparent distress at this time. Patient and/or ca1 family updated on plan of care and expected duration. Pain level reassessed. Patient is alert, oriented x 3, equal unlabored respirations, skin warm/dry/pink. 18:32 Reassessment: Patient appears in no apparent distress at this time. Patient and/or ca1 family updated on plan of care and expected duration. Pain level reassessed. Patient is alert, oriented x 3, equal unlabored respirations, skin warm/dry/pink. 19:37 Reassessment: Patient appears in no apparent distress at this time. Patient and/or ca1 family updated on plan of care and expected duration. Pain level reassessed. Patient is alert, oriented x 3, equal unlabored respirations, skin warm/dry/pink. Vital Signs: 15:36 BP 106 / 59; Pulse 75; Resp 19; Temp 97.8(TE); Pulse Ox 100% ; lt1 15:40 Weight 104.33 kg (R); Height 5 ft. 7 in. (170.18 cm) (R); Pain 7/10; ca1 16:28 BP 107 / 52; Pulse 59; Resp 15; Pulse Ox 98% on R/A; ca1 17:30 BP 106 / 65; Pulse 61; Resp 16 S; Pulse Ox 98% on R/A; ca1 18:30 BP 112 / 70; Pulse 59; Resp 17 S; Temp 98(TE); Pulse Ox 100% on R/A; ca1 19:37 BP 119 / 61; Pulse 63; Resp 15 S; Temp 97.7(TE); Pulse Ox 98% on R/A; ca1 15:40 Body Mass Index 36.02 (104.33 kg, 170.18 cm) ca1 ED Course: 15:22 Patient arrived in ED. rg4 15:30 Stephania Gant, DECLAN is Primary Nurse. ca1 15:30 Triage completed. 15:31 Arm band placed on left wrist. Patient placed in an exam room, on a stretcher, on tree topper, on pulse oximetry. EKG completed in triage. Results shown to MD. 15:35 EKG done, by field radio technician. reviewed by Terrence Montoya MD. sm3 15:40 Patient has correct armband on for positive identification. Placed in gown. Bed in low ca1 position. Call light in reach. Side rails up X 1. air bag curer on. Pulse ox on. NIBP on. Warm blanket given. 15:40 No provider procedures requiring assistance completed. Patient maintains SpO2 ca1 saturation greater than 95% on room air. 15:48 Terrence Montoya MD is Attending Physician. rn 16:05 Missed attempt(s): 22 gauge in right antecubital area. Bleeding controlled, band aid ca1 applied, catheter tip intact. 16:15 Missed attempt(s): 22 gauge in left forearm. Bleeding controlled, band aid applied, ca1 catheter tip intact. 16:35 Missed attempt(s): 22 gauge in right forearm. Bleeding controlled, band aid applied, iw catheter tip intact. 16:39 X-ray completed. Portable x-ray completed in exam room. Patient tolerated procedure mh1 well. 16:40 Initial lab(s) drawn, by me, sent to lab. Inserted saline lock: 24 gauge in right iw antecubital area, using aseptic technique. Blood collected. 16:42 XRAY Chest (1 view) In Process Unspecified. EDMS 17:39 Mily Chapman MD is Hospitalizing Provider. rn 19:38 Patient admitted, IV remains in place. ca1 Administered Medications: 16:05 Drug: Aspirin Chewable Tablet 324 mg Route: PO; ca1 17:00 Follow up: Response: No adverse reaction ca1 16:41 Drug: NS 0.9% 500 ml Route: IV; Rate: bolus; Site: right upper arm; iw 17:30 Follow up: Response: No adverse reaction; IV Status: Completed infusion; IV Intake: ca1 500ml 17:45 Drug: fentaNYL (PF) 25 mcg {Note: RASS - 0.} Route: IVP; Site: right antecubital; ca1 18:30 Follow up: Response: No adverse reaction; Pain is decreased ca1 Intake: 17:30 IV: 500ml; Total: 500ml. ca1 Outcome: 17:40 Decision to Hospitalize by Provider. rn 19:38 Admitted to Tele accompanied by tech, via wheelchair, room 431, with chart, Report ca1 called to Eliseo Lloyd RN 19:38 Condition: stable 19:38 Instructed on the need for admit. 20:04 Patient left the ED. ca1 Signatures: Dispatcher [employer] EDGrace Nunn, RN RN Cameila Bateman 1 Mariaelena Lechuga RN RN Terrence Montoya MD MD rn Garcia, Rubi 4 Piedad Orosco 3 Stephania Gant RN RN ca1 Vee, Samantha lt1
--- NOTE | 2018-12-16 17:42 | EDPHYS ---
Physician Documentation [facility] Name: Ariella Alexandre Age: 53 yrs Sex: Female : 1965 Arrival Date: 12/16/2018 Time: 15:22 Bed 23 Private MD: ED Physician Terrence Montoya HPI: 12/16 16:08 This 53 yrs old Female presents to ER via Ambulatory with complaints of Chest rn Pressure, Arm Pain, Shoulder Pain. 16:08 The patient or guardian reports chest pain that is located primarily in the substernal rn area. Onset: yesterday. The pain radiates to the left arm, the left shoulder, left neck, left jaw. The chest pain is described as a heaviness, a pressure, sharp. Duration: The patient or guardian reports multiple episodes, that are intermittent. Modifying factors: The symptoms are alleviated by nothing. the symptoms are aggravated by exertion. Severity of pain: At its worst the pain was moderate in the emergency department the pain is unchanged. The patient has not experienced similar symptoms in the past. The patient has not recently seen a physician. 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 - Social history:: Smoking status: Patient uses tobacco products, smokes one-half pack cigarettes per day, Patient/guardian denies using alcohol, street drugs. - Ebola Screening: : Patient negative for fever greater than or equal to 101.5 degrees Fahrenheit, and additional compatible Ebola Virus Disease symptoms Patient denies exposure to infectious person Patient denies travel to an Ebola-affected area in the 21 days before illness onset No symptoms or risks identified at this time. - Family history:: not pertinent. - Hospitalizations: : No recent hospitalization is reported. ROS: 16:08 Constitutional: Negative for fever, chills, and weight loss, Eyes: Negative for injury, rn pain, redness, and discharge, Cardiovascular: Negative for palpitations, and edema, Respiratory: Negative for shortness of breath, cough, wheezing, and pleuritic chest pain, Abdomen/GI: Negative for abdominal pain, diarrhea, and constipation, MS/Extremity: Negative for injury and deformity, Skin: Negative for injury, rash, and discoloration, Neuro: Negative for headache, weakness, numbness, tingling, and seizure. Exam: 16:08 Constitutional: This is a well developed, well nourished patient who is awake, alert, rn and in no acute distress. Head/Face: Normocephalic, atraumatic. Eyes: Pupils equal round and reactive to light, extra-ocular motions intact. Lids and lashes normal. Conjunctiva and sclera are non-icteric and not injected. Cornea within normal limits. Periorbital areas with no swelling, redness, or edema. Neck: Trachea midline, no thyromegaly or masses palpated, and no cervical lymphadenopathy. Supple, full range of motion without nuchal rigidity, or vertebral point tenderness. No Meningismus. Cardiovascular: Regular rate and rhythm. No pulse deficits. Respiratory: Lungs have equal breath sounds bilaterally, clear to auscultation. No increased work of breathing, no retractions or nasal flaring. Abdomen/GI: Soft, non-tender MS/ Extremity: Pulses equal, no cyanosis. Neurovascular intact. Full, normal range of motion. Equal circumference. Neuro: Awake and alert, GCS 15, oriented to person, place, time, and situation. Cranial nerves II-XII grossly intact. Motor strength 5/5 in all extremities. Sensory grossly intact. 17:18 ECG was reviewed by the Attending Physician. rn Vital Signs: 15:36 BP 106 / 59; Pulse 75; Resp 19; Temp 97.8(TE); Pulse Ox 100% ; lt1 15:40 Weight 104.33 kg (R); Height 5 ft. 7 in. (170.18 cm) (R); Pain 7/10; ca1 16:28 BP 107 / 52; Pulse 59; Resp 15; Pulse Ox 98% on R/A; ca1 17:30 BP 106 / 65; Pulse 61; Resp 16 S; Pulse Ox 98% on R/A; ca1 18:30 BP 112 / 70; Pulse 59; Resp 17 S; Temp 98(TE); Pulse Ox 100% on R/A; ca1 19:37 BP 119 / 61; Pulse 63; Resp 15 S; Temp 97.7(TE); Pulse Ox 98% on R/A; ca1 15:40 Body Mass Index 36.02 (104.33 kg, 170.18 cm) ca1 MDM: 15:48 Patient medically screened. rn 17:37 Differential diagnosis: acute myocardial infarction, acute pericarditis, coronary rn artery disease chest wall pain, costochondritis, gastroesophageal reflux disease (GERD), pleurisy, pneumonia, pneumothorax, stable angina, unstable angina. The patient was given aspirin in the Emergency Department. Data reviewed: vital signs, nurses notes, lab test result(s), EKG, radiologic studies, plain films, and as a result, I will admit patient. Counseling: I had a detailed discussion with the patient and/or guardian regarding: the historical points, exam findings, and any diagnostic results supporting the discharge/admit diagnosis, lab results, radiology results, the need for further work-up and treatment in the hospital. Admission orders: after a detailed discussion of the patient's condition and case, the admit orders are written by me. ED course: Pt with worsening chest pain that radiates to jaw/arm, worse with exertion, neg trop and ecg, will admit for chest pain evaluation given no other etiology found, good story, and worsening.. 17:42 ED course: BP too low for nitroglycerin, given fentanyl, will reeval for response, rn fluids going, admitted to Dr. Chapman. . 12/16 15:57 Order name: Basic Metabolic Panel; Complete Time: 17:36 rn 12/16 15:57 Order name: CBC with Diff rn 12/16 15:57 Order name: Magnesium; Complete Time: 17:36 rn 12/16 15:57 Order name: NT PRO-BNP; Complete Time: 17:36 rn 12/16 15:57 Order name: PT-INR; Complete Time: 17:05 rn 12/16 15:57 Order name: Troponin (emerg Dept Use Only); Complete Time: 17:36 rn 12/16 15:57 Order name: XRAY Chest (1 view); Complete Time: 17:05 rn 12/16 15:57 Order name: EKG; Complete Time: 15:58 rn 12/16 15:57 Order name: Cardiac monitoring; Complete Time: 16:18 rn 12/16 15:57 Order name: EKG - Nurse/Tech; Complete Time: 16:18 rn 12/16 15:57 Order name: IV Saline Lock; Complete Time: 16:52 rn 12/16 15:57 Order name: Labs collected and sent; Complete Time: 16:52 rn 12/16 15:57 Order name: O2 Per Protocol; Complete Time: 16:18 rn 12/16 15:57 Order name: O2 Sat Monitoring; Complete Time: 16:18 rn EC:18 Rate is 71 beats/min. Rhythm is regular. QRS [place] is Normal. UT interval is normal. QRS rn interval is normal. QT interval is normal. No Q waves. T waves are Normal. No ST changes noted. Clinical impression: Normal ECG. Interpreted by me. Administered Medications: 16:05 Drug: Aspirin Chewable Tablet 324 mg Route: PO; ca1 17:00 Follow up: Response: No adverse reaction ca1 16:41 Drug: NS 0.9% 500 ml Route: IV; Rate: bolus; Site: right upper arm; iw 17:30 Follow up: Response: No adverse reaction; IV Status: Completed infusion; IV Intake: ca1 500ml 17:45 Drug: fentaNYL (PF) 25 mcg {Note: RASS - 0.} Route: IVP; Site: right antecubital; ca1 18:30 Follow up: Response: No adverse reaction; Pain is decreased ca1 Disposition: 12/16/18 17:40 Hospitalization ordered by Mily Chapman for Observation. Preliminary diagnosis is Chest pain, unspecified. - Bed requested for Telemetry/MedSurg (observation). - Status is Observation. ca1 - Condition is Stable. - Problem is new. - Symptoms have improved. UTI on Admission? No Signatures: Dispatcher [employer] EDMS Brenda Dick Christina, RN RN Mariaelena Lechuga RN RN Terrence Montoya MD MD rn Acob, Cheryl, RN RN ca1 Corrections: (The following items were deleted from the chart) 18:53 17:40 Hospitalization Ordered by Mily Chapman MD for Observation. Preliminary diagnosis bd is Chest pain, unspecified. Bed requested for Telemetry/MedSurg (observation). Status is Observation. Condition is Stable. Problem is new. Symptoms have improved. UTI on Admission? No. rn 20:04 18:53 12/16/2018 17:40 Hospitalization Ordered by Mily Chapman MD for Observation. ca1 Preliminary diagnosis is Chest pain, unspecified. Bed requested for Telemetry/MedSurg (observation). Status is Observation. Condition is Stable. Problem is new. Symptoms have improved. UTI on Admission? No. bd
[2018-12-16] MEDS ORDERED: FENTANYL CITR 100 MCG/2 ML ONE (17:50)
--- NOTE | 2018-12-16 18:17 | P.HP ---
Certification for Inpatient Patient admitted to: Observation With expected LOS: <2 Midnights Practitioner: I am a practitioner with admitting privileges, knowledge of patient current condition, hospital course, and medical plan of care. Services: Services provided to patient in accordance with Admission requirements found in Title 42 Section 412.3 of the Code of Federal Regulations Patient History Date of Service: 12/16/18 Primary Care Provider: WOLF Godfrey (Dr. Chacon); Cards: Dr. Ann ding Jew Reason for admission: Chest pain History of Present Illness: This is a 53-year-old female with history of current smoking, hypertension, GERD admitted for chest pain. Per patient, she describes chest pressure for the past 2 days that has been intermittent. It does happen at rest and is worse with exertion. Alleviated with rest. Describes it as a pressure that under the left arm/shoulder and up to the jaw. Associated with nausea and BASS. She denies any other shortness of breath, dizziness, headache, vision changes , speech changes, other GI or complaints Pain was getting worse this morning therefore patient came to the ER. In the ER, blood pressure was 106/59, heart rate of 75, respirations of 19, afebrile at 97.8 and satting 100% on room air. She has a BMI of 36.02. Her labs were fairly unremarkable. Troponin was negative x1, EKG was with nonspecific changes. She was given aspirin 325 mg and IV fluids in the ER. At the time of my exam, she was alert oriented x3, in no acute distress and hemodynamically stable. Of note, she does have a stress test in the past that was negative. Allergies codeine [Codeine] Allergy (Verified 08/11/11 17:14) Hives Home medications list reviewed: Yes - Past Medical/Surgical History Diabetic: No -: Hypertension -: GERD - Family History Mother -: Heart disease (at age 58-60) - Social History Smoking Status: Current every day smoker (1 PPD x 15 yrs) Counseled patient to stop smoking for: more than 10 minutes Alcohol use: No CD- Drugs: No Place of Residence: Home Review of Systems 10-point ROS is otherwise unremarkable Physical Examination - Physical Exam General: Alert, In no apparent distress, Oriented x3 HEENT: Atraumatic, PERRLA, Mucous membr. moist/pink, EOMI, Sclerae nonicteric Neck: Supple, 2+ carotid pulse no bruit, No LAD, Without JVD or thyroid abnormality Respiratory: Clear to auscultation bilaterally, Normal air movement Cardiovascular: Regular rate/rhythm, Normal S1 S2 Gastrointestinal: Normal bowel sounds, No tenderness Musculoskeletal: No tenderness Integumentary: No rashes Neurological: Normal gait, Normal speech, Normal strength at 5/5 x4 extr, Normal tone, Normal affect Lymphatics: No axilla or inguinal lymphadenopathy - Studies Laboratory Data (last 24 hrs) 12/16/18 16:35: PT 12.6 H, INR 1.07 12/16/18 16:35: WBC 5.7, Hgb 13.7, Hct 38.1, Plt Count 189 12/16/18 16:35: Sodium 143, Potassium 3.8, BUN 19 H, Creatinine 0.93, Glucose 108 H, Magnesium 1.9 Assessment and Plan - Problems (Diagnosis) (1) Chest pain Current Visit: Yes Status: Acute Plan: Heart score:4 Risk factors: Hypertension, hyperlipidemia, age, gender -troponin negative x1, trend troponin -chest pain guidelines: Aspirin, Plavix, beta-alla, statin, lisinopril. -echo ordered, Pending -cardiology consulted, awaiting recommendations -morphine as needed for pain -nitro sublingual as needed Qualifiers: Chest pain type: unspecified Qualified Code(s): R07.9 - Chest pain, unspecified (2) Hypertension Current Visit: Yes Status: Chronic Plan: Will restart home medications as tolerated. Will continue to monitor and adjust as needed Qualifiers: Hypertension type: essential hypertension Qualified Code(s): I10 - Essential (primary) hypertension (3) Obesity (BMI 30-39.9) Current Visit: No Status: Chronic (4) Gastroesophageal reflux disease Current Visit: No Status: Chronic Plan: Continue Protonix, home medication Qualifiers: Esophagitis presence: without esophagitis Qualified Code(s): K21.9 - Gastro -esophageal reflux disease without esophagitis (5) Nicotine dependence Current Visit: Yes Status: Acute Plan: Counseled, more than 10 min Qualifiers: Nicotine product type: cigarettes Substance use status: uncomplicated Qualified Code(s): F17.210 - Nicotine dependence, cigarettes, uncomplicated - Plan DVT prophylaxis: Aspirin/Plavix GI prophylaxis: Protonix, home medication Diet: Heart healthy, NPO post midnight Disposition: Admit to floor with tele. Pending cardiology evaluation. Anticipate discharge in the next 24-48 hr if cardiology evaluation is negative. Discharge Plan: Home Plan to discharge in: 24 Hours - Advance Directives Does patient have a Living Will: No Does patient have a Durable POA for Healthcare: No Time Spent Managing Pts Care (In Minutes): 55
[2018-12-16] MEDS ORDERED: FENTANYL CITR 100 MCG/2 ML IV PRN (20:20)
[2018-12-16] MEDS ORDERED: NITROGLYCERIN 0.4 MG/TAB SL PRN (20:20)
[2018-12-16 20:38] VITALS: BMI 36.1
[2018-12-16 23:37] VITALS: O2SAT 96
[2018-12-17 05:13] LABS: Urine Appearance CLEAR; Urine Bilirubin NEGATIVE (NEG); Urine Blood NEGATIVE (NEG); Urine Color YELLOW; Urine Glucose NEGATIVE (NEG); Urine Microscopic Reflex NO UMIC; Urine Protein NEGATIVE (NEG); Urine Urobilinogen 0.2 mg/dL (0.2-1.0)
[2018-12-17] MEDS ORDERED: ATENOLOL 25 MG TAB PO SCH ×2 (06:00→21:00)
[2018-12-17 06:17] LABS: Absolute Lymphocytes (CBC) 1.8 K/uL (0.7-4.9); Basophils % 0.5 % (0-1.3); Hematocrit 36.4 % (36.0-45.0); Lymphocytes % 41.9 % (15.3-44.8); MPV 9.3 fL (7.6-11.3); RBC Red Blood Cell Count 3.95 M/uL (3.86-4.86)
[2018-12-17] MEDS ORDERED: PANTOPRAZOLE 40MG TABLET PO SCH (06:30)
[2018-12-17 06:34] LABS: Potassium 3.9 mmol/L (3.5-5.1)
[2018-12-17] MEDS ORDERED: ASPIRIN EC 81 MG TAB PO SCH (09:00)
[2018-12-17] MEDS ORDERED: CLOPIDOGREL 75 MG TABLET PO SCH (09:00)
[2018-12-17] MEDS ORDERED: LISINOPRIL 10 MG TAB PO SCH (09:00)
[2018-12-17] MEDS ORDERED: REGADENOSON 0.4 MG/5 ML SYR IV ONE (10:13)
--- NOTE | 2018-12-17 10:24 | CON ---
This is a 53-year-old woman. Chief Complaint: Chest pain. History Of Present Illness: Ms. Alexandre has had her chest pain for 2 days. It is nearly constant, li ttle bit off and on. Never completely goes away, has not gone now. In spite of all that EKG and enz ymes were normal. A year ago she had a normal nuclear cardiac stress test and echocardiogram with [facility] physician in [place]. She has never had a heart catheterization or angioplasty or any kind of hear t or vascular surgery. No history of blood clots. No history of diabetes. No history of dyslipidem ia. She takes a blood pressure medication at home. She notes swelling of her left ankle at the end of days when she has been standing a lot. Outpatient Medications: Olmesartan, amlodipine, hydrochlorothiazide, atenolol, aspirin. Allergies: SHE REPORTS AN ALLERGY TO CODEINE. Social History: She uses tobacco. She is trying to quit. Physical Examination: Vital Signs: 5 feet 7 inches, 230 pounds. HEENT: Normal. Lungs: Clear. Cardiac: Exam normal. Abdomen: Soft. Extremities: Normal. Distal pulses are 1+. Skin: Warm, pink, well perfused. Her EKG is normal. Hemoglobin, hematocrit, white blood cell count, platelet counts normal. Creatinine 0.88, total cholesterol 161, HDL 46. LDL cholesterol would be in the range of 105 or so ca lculated. Impression: Mrs. Alexandre is not having an acute coronary syndrome. We will do a nuclear stress test and echo. 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 MARKEL Voice ID: [id number] Report ID: [id number]
--- NOTE | 2018-12-17 12:56 | RAD REPORT ---
EXAM DESCRIPTION: NM - Rest Stress Cardiac Imaging - 12/17/2018 12:35 pm CLINICAL HISTORY: Chest pain COMPARISON: None. TECHNIQUE: The patient was administered approximately 10 mCi of Tc 99m Sestamibi prior to resting SP ECT imaging of the heart. The patient was then administered approximately 30 mCi of Tc 99m Sestamibi following exercise or pharmacologic stress. Multiplanar SPECT images were reviewed. FINDINGS: The end diastolic volume is 75 ml, the end systolic volume is 32 ml, and the ejection frac tion is 58 %. No stress-induced ischemia confirmed. Diminished activity across the anterior wall does not change be tween rest and stress imaging. This is more likely artifact and scarring. IMPRESSION: No stress-induced ischemic changes identified. Anterior wall diminished activity is favored be attenuation artifact rather than scarring. Ventricular volumes and ejection fraction are normal range.
--- NOTE | 2018-12-17 14:00 | ECHO ---
HEIGHT: 5 ft 7 in WEIGHT: 230 lb 11.2 oz DATE OF STUDY: 12/17/[address]: Mily Chapman MD 2-DIMENSIONAL: YES M.MODE: YES DOPPLER: YES COLOR FLOW: YES TDS: NO PORTABLE: NO DEFINITY: NO BUBBLE STUDY: NO DIAGNOSIS: CHEST PAIN CARDIAC HISTORY: CATHERIZATION: NO SURGERY: NO PROSTHETIC VALVE: NO PACEMAKER: NO MEASUREMENTS (cm) DIASTOLIC (NORMALS) SYSTOLIC (NORMALS) IVSd 0.8 (0.6-1.2) LA Diam 3.6 (1.9-4.0) LVEF 58% LVIDd 4.2 (3.5-5.7) LVIDs 3.0 (2.0-3.5) %FS 30% LVPWd 0.8 (0.6-1.2) Ao Diam 2.1 (2.0-3.7) 2 DIMENSIONAL ASSESSMENT: RIGHT ATRIUM: NORMAL LEFT ATRIUM: NORMAL RIGHT VENTRICLE: NORMAL LEFT VENTRICLE: NORMAL TRICUSPID VALVE: NORMAL MITRAL VALVE: NORMAL PULMONIC VALVE: NORMAL AORTIC VALVE: NORMAL PERICARDIAL EFFUSION: NONE AORTIC ROOT: NORMAL LEFT VENTRICULAR WALL MOTION: DOPPLER/COLOR FLOW: MILD MITRAL AND TRICUSPID REGURGITATION. NORMAL RIGHT VENTRICULAR SYSTOLIC PRESSURE. COMMENTS: NORMAL 2D ECHO. MILD MITRAL AND TRICUSPID REGURGITATION. TECHNOLOGIST: LILIANA KIRBY
--- NOTE | 2018-12-17 14:09 | P.SSS ---
Patient History Date of Service: 12/17/18 Primary Care Provider: WOLF Godfrey (Dr. Chacon); Cards: Dr. Ann ding [facility] Reason for admission: Chest pain History of Present Illness: This is a 53-year-old female with history of current smoking, hypertension, GERD admitted for chest pain. Per patient, she describes chest pressure for the past 2 days that has been intermittent. It does happen at rest and is worse with exertion. Alleviated with rest. Describes it as a pressure that under the left arm/shoulder and up to the jaw. Associated with nausea and BASS. She denies any other shortness of breath, dizziness, headache, vision changes , speech changes, other GI or complaints Pain was getting worse this morning therefore patient came to the ER. In the ER, blood pressure was 106/59, heart rate of 75, respirations of 19, afebrile at 97.8 and satting 100% on room air. She has a BMI of 36.02. Her labs were fairly unremarkable. Troponin was negative x1, EKG was with nonspecific changes. She was given aspirin 325 mg and IV fluids in the ER. At the time of my exam, she was alert oriented x3, in no acute distress and hemodynamically stable. Of note, she does have a stress test in the past that was negative. Allergies codeine [Codeine] Allergy (Verified 08/11/11 17:14) Hives Home medications list reviewed: Yes Home Medications: Aspirin Chewable [Aspirin Chewable*] 1 tab PO DAILY 12/16/18 Atenolol [Tenormin*] 1 tab PO BEDTIME 12/16/18 Olmesartan/Amlodipin/Hcthiazid [Imenfkt-Bftgtw-Gdmv 40-10-25Mg] 1 tab PO DAILY 12/16/18 Atorvastatin Calcium 20 mg PO DAILY #30 tablet 12/17/18 Pantoprazole [Protonix Tab*] 40 mg PO DAILYAC #30 tab 12/17/18 - Past Medical/Surgical History Diabetic: No -: Hypertension -: GERD -: back pain -: anxiety -: appendectomy -: back sx -: ear tubes -: left hand sx - Family History Mother -: Heart disease Notes: copd. kidney failure Father -: Cancer Notes: intestinal CA - Social History Smoking Status: Current every day smoker Alcohol use: No CD- Drugs: No Caffeine use: Yes Place of Residence: Home Review of Systems 10-point ROS is otherwise unremarkable Physical Examination - Vital Signs Temperature: 97.8 F Blood Pressure: 109/62 Pulse: 62 Respirations: 18 Pulse Ox (%): 95 - Physical Exam General: Alert, In no apparent distress, Oriented x3 HEENT: Atraumatic, PERRLA, Mucous membr. moist/pink, EOMI, Sclerae nonicteric Neck: Supple, 2+ carotid pulse no bruit, No LAD, Without JVD or thyroid abnormality Respiratory: Clear to auscultation bilaterally, Normal air movement Cardiovascular: Regular rate/rhythm, Normal S1 S2 Gastrointestinal: Normal bowel sounds, No tenderness Musculoskeletal: No tenderness Integumentary: No rashes Neurological: Normal gait, Normal speech, Normal strength at 5/5 x4 extr, Normal tone, Normal affect Lymphatics: No axilla or inguinal lymphadenopathy - Studies Laboratory Data (last 24 hrs) 12/16/18 16:35: PT 12.6 H, INR 1.07 12/16/18 16:35: WBC 5.7, Hgb 13.7, Hct 38.1, Plt Count 189 12/16/18 16:35: Sodium 143, Potassium 3.8, BUN 19 H, Creatinine 0.93, Glucose 108 H, Magnesium 1.9 - Diagnosis (Problem(s)) (1) Chest pain Current Visit: Yes Status: Acute Plan: ACS ruled out. Heart score:4 Risk factors: Hypertension, hyperlipidemia, age, gender -troponin negative x3 -chest pain guidelines: Aspirin, Plavix, beta-alla, statin, lisinopril. -echo done, normal. -cardiology consulted, cleared for discharge by cardiology. -morphine as needed for pain -nitro sublingual as needed Her diagnosis/treatment plan was discussed with her, all questions were answered. She verbalized understanding. She was then discharged home in a safe and stable manner. She will follow up with her autotransfusionist in 1 week. Qualifiers: Chest pain type: unspecified Qualified Code(s): R07.9 - Chest pain, unspecified (2) Hypertension Current Visit: Yes Status: Chronic Qualifiers: Hypertension type: essential hypertension Qualified Code(s): I10 - Essential (primary) hypertension (3) Obesity (BMI 30-39.9) Current Visit: No Status: Chronic (4) Gastroesophageal reflux disease Current Visit: No Status: Chronic Qualifiers: Esophagitis presence: without esophagitis Qualified Code(s): K21.9 - Gastro -esophageal reflux disease without esophagitis (5) Nicotine dependence Current Visit: Yes Status: Acute Plan: Counseled, more than 10 min Qualifiers: Nicotine product type: cigarettes Substance use status: uncomplicated Qualified Code(s): F17.210 - Nicotine dependence, cigarettes, uncomplicated - Disposition Discharge Date: 12/17/18 Disposition: ROUTINE DISCHARGE Condition: GOOD Consultations: Cardiology Patient Discharge Instructions: Please follow up with your primary care physician in 2-3 days ago. Please follow up with your autotransfusionist in 1 week. Return to the Emergency room for worsening symptoms. Diet: AHA Activity: Ad amado Time Spent Managing Pts Care (In Minutes): 45
--- NOTE | 2018-12-17 14:22 | TREADPHA ---
DX: CHEST PAIN Date of Study: 12/17/2018 Ht: 5 7 Wt: 230 lb 11.2 oz Consulting Physician: MARY MEDICATIONS: ASPIRIN, PLAVIX, NITROSTAT, SUBLIMAZE HISTORY: HYPERTENSION, SMOKER, CHEST PAIN PHYSICIAL EXAMINATION: RESTING B.P.: 107/80 RESTING H.R.: 55 RESTING EKG: SINUS BRADYCARDIA PROTOCOL: EXERCISE TIME: 3:30 B.P. AT PEAK STRESS: 122/57 IMPRESSION: LEXISCAN STRESS TEST PERFORMED PER PROTOCOL. CARDIOLITE INJECTED PER PROTOCOL. NO SUPRAVENTRICULAR TACHYCARDIA. NO VENTRICULAR TACHYCARDIA. NO ARRHYTHMIA NOTED. DENIED INCREASE IN CHEST PAIN. PATIENT TOLERATED WELL. PLEASE SEE NUCLEAR MEDICINE REPORT. NON-DIAGNOSTIC ELECTROCARDIOGRAM WITH LEXISCAN STRESS.
[2018-12-17 17:29] VITALS: BP 105/58; TEMP 96.9
== END 2018-12-17 16:37 | disposition home or self-care (01) ==
LOC: ER 15:20 → ERHOLD 18:12 → 4TH 19:39
PROVIDERS: ADMIT Family Medicine; ATTEND Family Medicine
DX: R07.9 Chest pain, unspecified (principal); I10 Essential (primary) hypertension; K21.9 Gastro-esophageal reflux disease without esophagitis; F17.210 Nicotine dependence, cigarettes, uncomplicated; E66.9 Obesity, unspecified; Z68.36 Body mass index [BMI] 36.0-36.9, adult
CPT/HCPCS: 96361; 93005; 93017; 93306; 85025 ×2; 80048 ×2; 36415; 83735; 85610; 80061; 81003; 84484 ×3; 83880; 71045; 78452; 96374; 99285; J3010 ×2; J2785; A9500; G0378 ×3

== ENCOUNTER 2021-01-03 17:28 | Emergency (ER) | payer OTHER ==
[2021-01-03 18:18] LABS: Protime INR 1.09
[2021-01-03 18:19] LABS: Absolute Lymphocytes (CBC) 2.2 K/uL (0.7-4.9); Basophils % 0.7 % (0-1.3); Hematocrit 39.1 % (36.0-45.0); Lymphocytes % 31.8 % (15.3-44.8); MPV 9.1 fL (7.6-11.3); RBC Red Blood Cell Count 4.19 M/uL (3.86-4.86)
[2021-01-03] MEDS ORDERED: NITROGLYCERIN 1 GM PKT TD ONE (18:23)
[2021-01-03] MEDS ORDERED: MORPHINE 4 MG/ML SYR ONE (18:25)
[2021-01-03] MEDS ORDERED: ONDANSETRON 4 MG/2 ML VIAL ONE (18:25)
[2021-01-03 18:30] LABS: ALT/SGPT 15 U/L (12-78); AST/SGOT 10 U/L (15-37); Albumin 3.8 g/dL (3.4-5.0); Alkaline Phosphatase 65 U/L (45-117); BUN Blood Urea Nitrogen 14 mg/dL (7-18); Bicarbonate 23 mmol/L (21-32); Bilirubin Direct 0.1 mg/dL (0-0.2); Bilirubin Total 0.3 mg/dL (0.2-1.0); Glucose Level 102 mg/dL (74-106); Magnesium 1.7 mg/dL (1.8-2.4); NT PRO-BNP 277 pg/mL (<125); Potassium 3.6 mmol/L (3.5-5.1); Protein, Total 6.7 g/dL (6.4-8.2); Sodium Level 143 mmol/L (136-145); Troponin (Emerg Dept Use Only) < 0.02 ng/mL (0.0-0.045)
--- NOTE | 2021-01-03 18:46 | RAD REPORT ---
EXAM DESCRIPTION: RAD - Chest Single View - 01/03/2021 6:29 pm CLINICAL HISTORY: CHEST PAIN Chest pain. COMPARISON: <Comparisons> FINDINGS: Portable technique limits examination quality. The lungs are grossly clear. The heart is upper limit of normal in size. No displaced fractures. IMPRESSION: No acute intrathoracic process suspected.
--- NOTE | 2021-01-03 18:54 | RAD REPORT ---
EXAM DESCRIPTION: CTAbdomen Pelvis W Contrast - 01/03/2021 6:46 pm CLINICAL HISTORY: Abdominal pain. Chest pain chest pain;Abd pain COMPARISON: Abdomen Pelvis W Contrast dated 02/25/2018 TECHNIQUE: Biphasic CT imaging of the abdomen and pelvis was performed with 100 ml non-ionic IV cont rast. All CT scans are performed using dose optimization technique as appropriate and may include automated exposure control or mA/KV adjustment according to patient size. FINDINGS: The lung bases are clear. The liver, spleen, pancreas, adrenal glands and kidneys are within normal limits. No bowel obstruction, free air, free fluid or abscess. The appendix is not identified as a discrete structure, however, no secondary findings of appendicitis are identified. No evidence of significan t lymphadenopathy. Mild to moderate lumbosacral degenerative changes. IMPRESSION: No acute intra-abdominal or pelvic finding.
--- NOTE | 2021-01-03 22:32 | EDPHYS ---
Physician Documentation [facility] Name: Ariella Alexandre Age: 55 yrs Sex: Female : 1965 Arrival Date: 01/03/2021 Time: 17:36 Bed 27 Private MD: ED Physician Cal Kaur HPI: 01/03 17:38 This 55 yrs old Female presents to ER via Unassigned with complaints of Chest kdr pain. 17:38 The patient or guardian reports chest pain that is located primarily in the substernal kdr area. Onset: suddenly, at 16:00. The pain does not radiate. Associated signs and symptoms: Pertinent positives: nausea, shortness of breath, Pertinent negatives: cough, diaphoresis, dizziness, headache, lower extremity pain. The chest pain is described as aching. 17:58 Duration: The patient or guardian reports a single episode, that is still ongoing, but kdr improving. Modifying factors: The symptoms are alleviated by ASA, NTG, EMS had given the patient some pain medication nitro which gave her partial relief.. Severity of pain: At its worst the pain was a 8 / 10 in the emergency department the pain is a 6 / 10. EMS care prior to arrival includes: nitroglycerin, with partial relief of the chest pain. The patient has not experienced similar symptoms in the past. The patient has not recently seen a physician, Patient states that she did have a full cardiac work-up in April of this year which she believes was negative. Historical: - Allergies: 17:38 Codeine (Hives, rash); kg 17:38 Keflex; kg - Home Meds: 17:38 aspirin 81 mg Oral TbEC [Active]; atenolol 25 mg Oral tab [Active]; Nexium 20 mg Oral kg cpDR [Active]; Tribenzor Oral [Active]; - PMHx: 17:38 Back pain; GERD; Hypertension; Anxiety; kg - Immunization history:: Adult Immunizations not up to date, Client reports receiving the 1st dose of the Covid vaccine, November 14, 2020 Janny. - Social history:: Smoking status: Patient reports the use of cigarette tobacco products, smokes one pack cigarettes per day. ROS: 17:58 Constitutional: Negative for fever, chills, and weight loss, Eyes: Negative for injury, kdr pain, redness, and discharge, ENT: Negative for injury, pain, and discharge, Neck: Negative for injury, pain, and swelling, Respiratory: Negative for shortness of breath, cough, wheezing, and pleuritic chest pain, Abdomen/GI: Negative for abdominal pain, nausea, vomiting, diarrhea, and constipation, Back: Negative for injury and pain, : Negative for injury, bleeding, discharge, and swelling, MS/Extremity: Negative for injury and deformity, Skin: Negative for injury, rash, and discoloration, Neuro: Negative for headache, weakness, numbness, tingling, and seizure activity. Psych: Negative for depression, anxiety, suicide ideation, homicidal ideation, and hallucinations, Allergy/Immunology: Negative for hives, rash, and allergies, Endocrine: Negative for neck swelling, polydipsia, polyuria, polyphagia, and marked weight changes, Hematologic/Lymphatic: Negative for swollen nodes, abnormal bleeding, and unusual bruising. 17:58 Cardiovascular: Positive for chest pain, of the xiphoid area, Negative for 17:58 Respiratory: Positive for shortness of breath. Exam: 18:01 Constitutional: This is a well developed, well nourished patient who is awake, alert, kdr and in no acute distress. Head/Face: Normocephalic, atraumatic. Eyes: Pupils equal round and reactive to light, extra-ocular motions intact. Lids and lashes normal. Conjunctiva and sclera are non-icteric and not injected. Cornea within normal limits. Periorbital areas with no swelling, redness, or edema. Neck: Trachea midline, no thyromegaly or masses palpated, and no cervical lymphadenopathy. Supple, full range of motion without nuchal rigidity, or vertebral point tenderness. No Meningismus. Chest/axilla: Normal chest wall appearance and motion. Nontender with no deformity. No lesions are appreciated. Cardiovascular: Regular rate and rhythm with a normal S1 and S2. No gallops, murmurs, or rubs. Normal PMI, no JVD. No pulse deficits. Respiratory: Lungs have equal breath sounds bilaterally, clear to auscultation and percussion. No rales, rhonchi or wheezes noted. No increased work of breathing, no retractions or nasal flaring. Abdomen/GI: Soft, non-tender, with normal bowel sounds. No distension or tympany. No guarding or rebound. No evidence of tenderness throughout. Back: No spinal tenderness. No costovertebral tenderness. Full range of motion. Skin: Warm, dry with normal turgor. Normal color with no rashes, no lesions, and no evidence of cellulitis. MS/ Extremity: Pulses equal, no cyanosis. Neurovascular intact. Full, normal range of motion. Neuro: Awake and alert, GCS 15, oriented to person, place, time, and situation. Cranial nerves II-XII grossly intact. Motor strength 5/5 in all extremities. Sensory grossly intact. Cerebellar exam normal. Normal gait. Psych: Awake, alert, with orientation to person, place and time. Behavior, mood, and affect are within normal limits. Vital Signs: 17:36 BP 149 / 71; Pulse 67; Resp 20; Temp 97.9(O); Pulse Ox 98% on R/A; Weight 92.99 kg (R); kg Height 5 ft. 6 in. (167.64 cm) (R); Pain 6/10; 18:33 BP 132 / 62; Pulse 63; Resp 18; Temp 98.0(TE); Pulse Ox 99% ; kh1 19:35 BP 120 / 66; Pulse 59; Resp 18; Pulse Ox 100% on R/A; df1 21:18 BP 123 / 71; Pulse 75; Resp 18; Pulse Ox 100% on R/A; bc5 22:10 BP 125 / 76; Pulse 76; Resp 18; Pulse Ox 100% on R/A; df1 17:36 Body Mass Index 33.09 (92.99 kg, 167.64 cm) kg MDM: 18:01 Data reviewed: vital signs, nurses notes, lab test result(s), EKG, radiologic studies. kdr 22:29 Differential diagnosis: acute myocardial infarction, acute pericarditis, anxiety, mh7 coronary artery disease chest wall pain, congestive heart failure costochondritis, myocarditis, pericarditis, pleurisy, pneumonia, pneumothorax. HEART Score: History: Moderately Suspicious (1), ECG: Normal (0), Age: > 45 and < 65 years (1), Risk Factors: 1 or 2 risk factors (1), [Hypertension] [Active Smoker] Troponin: < or = 1 x Normal Limit (0), Total Score = 3. The patient was given aspirin in the Emergency Department. Data interpreted: Pulse oximetry: on room air is 100 %. Interpretation: normal. Counseling: I had a detailed discussion with the patient and/or guardian regarding: the historical points, exam findings, and any diagnostic results supporting the discharge/admit diagnosis. Counseling: I had a detailed discussion with the patient and/or guardian regarding: lab results, radiology results, the need for further work-up and treatment in the hospital, to return to the emergency department if symptoms worsen or persist or if there are any questions or concerns that arise at home. Response to treatment: the patient's symptoms have markedly improved after treatment. 22:31 Patient medically screened. [facility] 01/03 17:49 Order name: Basic Metabolic Panel; Complete Time: 19:16 formerly [facility] 01/03 17:49 Order name: CBC with Diff; Complete Time: 19:16 formerly [facility] 01/03 17:49 Order name: LFT's; Complete Time: 19:16 formerly [facility] 01/03 17:49 Order name: Magnesium; Complete Time: 19:16 formerly [facility] 01/03 17:49 Order name: NT PRO-BNP; Complete Time: 19:16 formerly [facility] 01/03 17:49 Order name: PT-INR; Complete Time: 19:16 formerly [facility] 01/03 17:49 Order name: Troponin (emerg Dept Use Only); Complete Time: 19:16 formerly [facility] 01/03 17:49 Order name: XRAY Chest (1 view); Complete Time: 19:16 formerly [facility] 01/03 18:01 Order name: Lipase; Complete Time: : [facility] 01/03 18:01 Order name: CT Abd/Pelvis - IV Contrast Only; Complete Time: 19:16 kdr 01/03 18:26 Order name: Troponin (emerg Dept Use Only): Drawn 3 hours after initial draw; Complete kdr Time: :01/03 17:49 Order name: Cardiac monitoring; Complete Time: 18:14 formerly [facility] 01/03 17:49 Order name: EKG - Nurse/Tech; Complete Time: 18:14 formerly [facility] 01/03 17:49 Order name: IV Saline Lock; Complete Time: 18:14 formerly [facility] 01/03 17:49 Order name: Labs collected and sent; Complete Time: 18:14 formerly [facility] 01/03 17:49 Order name: O2 Per Protocol; Complete Time: 18:14 formerly [facility] 01/03 17:49 Order name: O2 Sat Monitoring; Complete Time: 18:14 3 Administered Medications: 18:17 Drug: Nitro-Bid (nitroglycerin) Ointment 2 % 1 inches Route: Transdermal; Site: [facility] anterior chest wall; 18:17 Drug: Zofran (Ondansetron) 4 mg Route: IVP; Site: right wrist; 1 18:18 Drug: morphine 4 mg Route: IVP; Site: right wrist; formerly [facility] Disposition Summary: 01/03/21 22:31 Left Against Medical Advice Location: Home [facility] Problem: new [facility] Symptoms: have improved [facility] Condition: Stable [facility] Diagnosis - Chest pain, unspecified [facility] Followup: [facility] - With: Private Physician - When: 1 - 2 days - Reason: Worsening of condition, Recheck today's complaints, Continuance of care, Re-evaluation by your physician Followup: [facility] - With: Michoacano Newton MD - When: 1 - 2 days - Reason: Worsening of condition, Recheck today's complaints Discharge Instructions: - Discharge Summary Sheet [facility] - Nonspecific Chest Pain, Adult, [id number] [facility] Signatures: Dispatcher [employer] EDAlessio Guillory MD MD [facility] Danay Waldrop 3 Cal Kaur MD MD [facility] Madelaine Mcdowell, DECLAN RN Lilly Alarcon [facility]
--- NOTE | 2021-01-03 22:32 | ER ---
Nurse's Notes [facility] Name: Ariella Alexandre Age: 55 yrs Sex: Female : 1965 Arrival Date: 01/03/2021 Time: 17:36 Bed 27 Private MD: Diagnosis: Chest pain, unspecified Presentation: 01/03 17:36 Chief complaint: Patient states: Chest pain and nausea starting at 16:00. Pt received kg 325 aspirin, 1 nitro sublingual, 4 mg IV zofran in route. Coronavirus screen: Vaccine status: Patient reports receiving the 1st dose of the Covid vaccine. Date November 14, 2020 Moderna At this time, the client does not indicate any symptoms associated with coronavirus-19. Ebola Screen: Patient negative for fever greater than or equal to 101.5 degrees Fahrenheit, and additional compatible Ebola Virus Disease symptoms Patient denies exposure to infectious person. Patient denies travel to an Ebola-affected area in the 21 days before illness onset. Initial Sepsis Screen: Does the patient meet any 2 criteria? No. Patient's initial sepsis screen is negative. Does the patient have a suspected source of infection? No. Patient's initial sepsis screen is negative. Risk Assessment: Do you want to hurt yourself or someone else? Patient reports no desire to harm self or others. Onset of symptoms was January 03, 2021 at 16:00. 17:36 Method Of Arrival: EMS: [facility] kg 17:36 Acuity: DAHIANA 3 kg 22:[address] Kaur at bedside to discuss admission for observation. Pt states she would df1 rather go home and follow up with cardiology. Pt aware of AMA declaration if leaving against medical advice. No further questions voiced. Triage Assessment: 17:38 General: Appears in no apparent distress. Behavior is calm, cooperative, appropriate kg for age, quiet. Pain: Complains of pain in chest. Historical: - Allergies: 17:38 Codeine (Hives, rash); kg 17:38 Keflex; kg - Home Meds: 17:38 aspirin 81 mg Oral TbEC [Active]; atenolol 25 mg Oral tab [Active]; Nexium 20 mg Oral kg cpDR [Active]; Tribenzor Oral [Active]; - PMHx: 17:38 Back pain; GERD; Hypertension; Anxiety; kg - Immunization history:: Adult Immunizations not up to date, Client reports receiving the 1st dose of the Covid vaccine, November 14, 2020 [place]. - Social history:: Smoking status: Patient reports the use of cigarette tobacco products, smokes one pack cigarettes per day. Screenin:39 Abuse screen: Denies threats or abuse. Denies injuries from another. Nutritional kg screening: No deficits noted. Tuberculosis screening: No symptoms or risk factors identified. Fall Risk None identified. Assessment: 18:15 General: Appears in no apparent distress. Behavior is calm, cooperative, appropriate kh1 for age. Neuro: No deficits noted. Level of Consciousness is awake, alert, obeys commands, Oriented to person, place, time, situation, Research Program Coordinator are equal bilaterally Moves all extremities. Gait is steady, Speech is normal, Reports. Cardiovascular: Reports chest pain, nausea, shortness of breath, vomiting, Capillary refill < 3 seconds Rhythm is sinus rhythm. Respiratory: No deficits noted. Airway is patent Respiratory effort is even, unlabored, Respiratory pattern is regular, Vital Signs: 17:36 BP 149 / 71; Pulse 67; Resp 20; Temp 97.9(O); Pulse Ox 98% on R/A; Weight 92.99 kg (R); kg Height 5 ft. 6 in. (167.64 cm) (R); Pain 6/10; 18:33 BP 132 / 62; Pulse 63; Resp 18; Temp 98.0(TE); Pulse Ox 99% ; kh1 19:35 BP 120 / 66; Pulse 59; Resp 18; Pulse Ox 100% on R/A; df1 21:18 BP 123 / 71; Pulse 75; Resp 18; Pulse Ox 100% on R/A; bc5 22:10 BP 125 / 76; Pulse 76; Resp 18; Pulse Ox 100% on R/A; df1 17:36 Body Mass Index 33.09 (92.99 kg, 167.64 cm) kg ED Course: 17:36 Patient arrived in ED. kg 17:37 Alessio Tabares MD is Attending Physician. kdr 17:38 Triage completed. kg 17:38 Arm band placed on right wrist. kg 17:39 Patient has correct armband on for positive identification. Placed in gown. Bed in low kg position. Call light in reach. Side rails up X2. 17:39 Maintain EMS IV. Dressing intact. Good blood return noted. Site clean \T\ dry. Gauge \T\ kg site: 20 L wrist. 18:14 Basic Metabolic Panel Sent. kh1 18:14 CBC with Diff Sent. kh1 18:14 LFT's Sent. kh1 18:14 Magnesium Sent. kh1 18:14 NT PRO-BNP Sent. kh1 18:14 PT-INR Sent. kh1 18:14 Troponin (emerg Dept Use Only) Sent. 1 18:18 Lipase Sent. 1 18:29 XRAY Chest (1 view) In Process Unspecified. EDMS 18:33 Lilly Sarkar is Primary Nurse. 1 18:46 CT Abd/Pelvis - IV Contrast Only In Process Unspecified. EDMS 19:29 Attending Physician role handed off by Alessio Tabares MD [facility] 19:29 Cal Kaur MD is Attending Physician. [facility] 20:36 Troponin (emerg Dept Use Only): Drawn 3 hours after initial draw Sent. [facility] 22:31 Michoacano Newton MD is Referral Physician. [facility] 22:41 No provider procedures requiring assistance completed. IV discontinued, intact. df1 Administered Medications: 18:17 Drug: Nitro-Bid (nitroglycerin) Ointment 2 % 1 inches Route: Transdermal; Site: [facility] anterior chest wall; 18:17 Drug: Zofran (Ondansetron) 4 mg Route: IVP; Site: right wrist; kh1 18:18 Drug: morphine 4 mg Route: IVP; Site: right wrist; 1 Outcome: 22:42 Discharged to home ambulatory. df1 22:42 Condition: stable 22:42 Discharge instructions given to patient, significant other, Instructed on follow up and referral plans. Demonstrated understanding of follow-up care. 22:43 Patient left the ED. df1 Signatures: Dispatcher [employer] EDMS Alessio Tabares MD MD [facility] Cal Kaur MD MD 7 Madelaine Mcdowell, DECLAN RN kg Lilly Sarkar [facility] Donita Reyes RN RN 5 Gwen Frias df1
[2021-01-03 23:43] VITALS: TEMP 98
[2021-01-03 23:44] VITALS: O2SAT 100
[2021-01-03 23:47] VITALS: BP 125/76
== END 2021-01-03 22:43 | disposition left against medical advice (07) ==
LOC: ER 17:28
DX: R07.9 Chest pain, unspecified (principal); I10 Essential (primary) hypertension; F41.9 Anxiety disorder, unspecified; F17.210 Nicotine dependence, cigarettes, uncomplicated; Z79.82 Long term (current) use of aspirin; Z88.5 Allergy status to narcotic agent; Z88.8 Allergy status to other drugs, medicaments and biological substances
CPT/HCPCS: 85025; 80048; 36415; 83735; 85610; 80076; 84484 ×2; 83690; 83880; 74177; 71045; 96375; 96374; 99284; Q9967; J2405

== ENCOUNTER 2023-03-24 11:15 | Emergency (ER) | payer OTHER ==
--- NOTE | 2023-03-24 12:10 | RAD REPORT ---
EXAM DESCRIPTION: RAD - Foot Right 3 View - 03/24/2023 12:03 pm CLINICAL HISTORY: PAIN COMPARISON: Foot Right 3 View dated 03/08/2016 FINDINGS: No fracture, dislocation or aggressive marrow pattern. Tiny calcaneal spurs.
[2023-03-24 12:16] LABS: Absolute Lymphocytes (CBC) 2.7 K/uL (0.7-4.9); Hematocrit 39.5 % (36.0-45.0); Lymphocytes % 30.7 % (15.3-44.8); MPV 7.7 fL (7.6-11.3); Platelets 227 thou/uL (152-406); RBC Red Blood Cell Count 4.29 M/uL (3.86-4.86)
[2023-03-24 12:19] LABS: Protime INR 1.17
[2023-03-24 12:38] LABS: Albumin 3.9 g/dL (3.4-5.0); Bilirubin Total 0.4 mg/dL (0.2-1.0); Potassium 3.7 mEq/L (3.5-5.1); Protein, Total 7.4 g/dL (6.4-8.2)
[2023-03-24] MEDS ORDERED: MORPHINE 4 MG/ML SYR ONE (12:48)
[2023-03-24] MEDS ORDERED: ONDANSETRON 4 MG/2 ML VIAL ONE (12:48)
--- NOTE | 2023-03-24 13:33 | RAD REPORT ---
EXAM DESCRIPTION: US - Extremity Venous Uni Ltd - 03/24/2023 1:18 pm CLINICAL HISTORY: Pain COMPARISON: None. TECHNIQUE: Real-time sonographic evaluation of the right lower extremity deep venous system was perf ormed. FINDINGS: Normal compressibility, flow augmentation, phasic flow and spontaneous flow is identified in the right lower extremity deep venous system. No intraluminal filling defects seen. IMPRESSION: No DVT in the right lower extremity.
--- NOTE | 2023-03-24 13:34 | RAD REPORT ---
EXAM DESCRIPTION: US - Lower Extremity Artery Uni Ltd - 03/24/2023 1:19 pm CLINICAL HISTORY: PAIN COMPARISON: No comparisons TECHNIQUE: Right lower extremity arterial Doppler examination was performed with waveform tracing. FINDINGS: Biphasic flow seen along a segment of the right posterior tibial artery. Triphasic waveforms are seen throughout the remainder of the right extremity arterial system to the level of the dorsalis pedis a rteries. IMPRESSION: Findings suggestive of mild peripheral vascular disease.
--- NOTE | 2023-03-24 14:12 | ER ---
Nurse's Notes [facility] Name: Ariella Alexandre Age: 57 yrs Sex: Female : 1965 Arrival Date: 03/24/2023 Time: 11:15 Bed 7 Private MD: Diagnosis: Cellulitis of right lower limb Presentation: 03/24 11:25 Chief complaint: Patient states: Pt c/o right anterior leg pain that extends to right cm10 ankle since Thursday. Pt states foot is more swollen and painful than usual. Pt states no weight bearing since yesterday. Pt denies any injury to extremity. Coronavirus screen: Vaccine status: Patient reports receiving the 1st dose of the Covid vaccine. Client denies travel out of the [place] in the last 14 days. At this time, the client does not indicate any symptoms associated with coronavirus-19. Ebola Screen: Patient negative for fever greater than or equal to 101.5 degrees Fahrenheit, and additional compatible Ebola Virus Disease symptoms Patient denies exposure to infectious person. Patient denies travel to an Ebola-affected area in the 21 days before illness onset. No symptoms or risks identified at this time. Initial Sepsis Screen: Does the patient meet any 2 criteria? No. Patient's initial sepsis screen is negative. Does the patient have a suspected source of infection? No. Patient's initial sepsis screen is negative. Risk Assessment: Do you want to hurt yourself or someone else? Patient reports no desire to harm self or others. Onset of symptoms was March 22, 2023. 11:25 Method Of Arrival: Wheelchair cm10 11:25 Acuity: DAHIANA 3 cm10 Historical: - Allergies: 11:28 Codeine (Hives, rash); cm10 - Home Meds: 11:28 atenolol 25 mg Oral tab [Active]; Lasix 40 mg oral tablet every other day [Active]; cm10 lisinopril 5 mg Oral tablet [Active]; aspirin 81 mg Oral TbEC [Active]; Nexium 20 mg Oral cpDR [Active]; - PMHx: 11:28 Anxiety; Back pain; GERD; Hypertension; cm10 - Immunization history:: Adult Immunizations unknown. - Social history:: Smoking status: Patient reports the use of cigarette tobacco products, smokes one pack cigarettes per day. - Family history:: not pertinent. - Hospitalizations: : No recent hospitalization is reported. Screenin:35 [facility] ED Fall Risk Assessment (Adult) History of falling in the last 3 months, rs5 including since admission No falls in past 3 months (0 pts) Confusion or Disorientation No (0 pts) Intoxicated or Sedated No (0 pts) Impaired Gait No (0 pts) Mobility Assist Device Used No (0 pt) Altered Elimination No (0 pt) Score/Fall Risk Level 0 - 2 = Low Risk Oriented to surroundings, Maintained a safe environment. Abuse screen: Denies threats or abuse. Nutritional screening: No deficits noted. Tuberculosis screening: No symptoms or risk factors identified. Assessment: 11:35 General: Appears in no apparent distress. uncomfortable, Behavior is calm, cooperative. rs5 Pain: Complains of pain in right foot Pain does not radiate. Pain currently is 6 out of 10 on a pain scale. Quality of pain is described as aching, Pain began 2-3 days ago. Is continuous. Neuro: Level of Consciousness is awake, alert, obeys commands, Oriented to person, place, time, situation. Cardiovascular: Heart tones S1 S2 present Rhythm is regular. Respiratory: Airway is patent Respiratory effort is even, unlabored, Respiratory pattern is regular, symmetrical, Breath sounds are clear bilaterally. GI: Abdomen is round non-distended, Bowel sounds present X 4 quads. Abd is soft and non tender X 4 quads. : No signs and/or symptoms were reported regarding the genitourinary system. EENT: No signs and/or symptoms were reported regarding the EENT system. Derm: Skin is intact, Skin is pink, warm \T\ dry. Musculoskeletal: Range of motion: limited in right foot redness noted to right foot. 11:35 Reassessment: Pt denies recent injury to affected extremity. rs5 12:20 Reassessment: Provider notified pt is still experiencing pain. rs5 12:27 Reassessment: Patient and/or family updated on plan of care and expected duration. Pain rs5 level reassessed. Patient is alert, oriented x 3, equal unlabored respirations, skin warm/dry/pink. 12:30 Reassessment: To bedside for med adm. rs5 13:20 Reassessment: Patient and/or family updated on plan of care and expected duration. Pain rs5 level reassessed. Patient is alert, oriented x 3, equal unlabored respirations, skin warm/dry/pink. Patient denies pain at this time. Patient states feeling better. 14:00 Reassessment: No changes from previously documented assessment. rs5 Vital Signs: 11:25 BP 137 / 77; Pulse 71; Resp 18; Temp 98.2(O); Pulse Ox 100% on R/A; Weight 101.15 kg; cm10 Height 5 ft. 6 in. ; Pain 10/10; 11:56 BP 146 / 68; Pulse 60; Resp 18; Pulse Ox 98% on R/A; ld1 12:29 BP 124 / 99; Pulse 69; Resp 18; Pulse Ox 100% on R/A; ld1 14:00 BP 130 / 95; Pulse 65; Resp 17; Pulse Ox 99% on R/A; rs5 11:25 Body Mass Index 35.99 (101.15 kg, 167.64 cm) cm10 11:25 Pain Scale: Adult cm10 ED Course: 11:18 Patient arrived in ED. rg4 11:19 Terrence Montoya MD is Attending Physician. rn 11:28 Triage completed. cm10 11:33 Abdias Kovacs, RN is Primary Nurse. rs5 11:33 Arm band placed on Patient placed in an exam room, in a wheelchair. cm10 11:35 Patient has correct armband on for positive identification. Placed in gown. Bed in low rs5 position. Call light in reach. Side rails up X2. 11:56 Blood Culture Adult (2) Sent. ld1 11:56 CBC with Diff Sent. ld1 11:56 CMP Sent. ld1 11:56 Lactate w/ 2H reflex if indic. Sent. ld1 11:56 Protime (+inr) Sent. ld1 11:56 No provider procedures requiring assistance completed. Inserted saline lock: 20 gauge ld1 in left antecubital area, using aseptic technique. Blood collected. 12:05 XRAY Foot RIGHT 3 View In Process Unspecified. EDMS 13:20 Extremity Venous Uni Ltd US In Process Unspecified. EDMS 13:21 Lower Extremity Artery Uni Ltd US In Process Unspecified. EDMS 14:25 IV discontinued, intact, bleeding controlled, No redness/swelling at site. Pressure rs5 dressing applied. Administered Medications: 12:30 Drug: morphine IVP or IV 4 mg IVP once over 4 mins Route: IVP; Infused Over: 4 mins; rs5 Site: right antecubital; 13:00 Follow up: Response: No adverse reaction rs5 12:30 Drug: Ondansetron IVP 4 mg IVP once; over 2 minutes Route: IVP; Site: right antecubital;rs5 13:00 Follow up: Response: No adverse reaction rs5 14:15 Drug: Trimethoprim-Sulfamethoxazole PO (160 mg-800 mg (DS) 2 tabs PO once Route: PO; rs5 14:25 Follow up: Response: No adverse reaction rs5 14:15 Drug: Rocephin IV 1 grams IV at calculated rate once; Given slow IV push per pharmacy rs5 instructions Route: IV; Rate: calculated rate; Site: left antecubital; 14:25 Follow up: Response: No adverse reaction rs5 14:15 Drug: Ketorolac IVP 30 mg IVP once Route: IVP; Site: left antecubital; rs5 14:25 Follow up: Response: No adverse reaction rs5 Medication: 12:39 VIS not applicable for this client. VIS not applicable for this client. rs5 Outcome: 14:12 Discharge ordered by . rn 14:25 Discharged to home via wheelchair, with family, rs5 14:25 Condition: stable 14:25 Discharge instructions given to patient, Instructed on discharge instructions, follow up and referral plans. medication usage, Demonstrated understanding of instructions, follow-up care, medications, Prescriptions given X 2, 14:30 Patient left the ED. rs5 Signatures: Dispatcher [employer] EDMS Terrence Montoya MD MD rn Garcia, Rubi rg4 Yanet Reece RN RN ld1 Abdias Kovacs RN RN rs5 Yanni Mata RN RN cm10 Corrections: (The following items were deleted from the chart) 11:40 11:25 Chief complaint: Patient states: Pt c/o right anterior leg pain that extends to cm10 right ankle since Thursday. Pt states foot is more swollen than usual. Pt states no weight bearing since yesterday. cm10 11:41 11:33 Arm band placed on Patient placed in an exam room, on a stretcher, cm10 cm10 17:41 15:00 Response: No adverse reaction rs5 rs5
--- NOTE | 2023-03-24 14:13 | EDPHYS ---
Physician Documentation [facility] Name: Ariella Alexandre Age: 57 yrs Sex: Female : 1965 Arrival Date: 03/24/2023 Time: 11:15 Bed 7 Private MD: ED Physician Terrence Montoya HPI: 03/24 13:04 This 57 yrs old Female presents to ER via Wheelchair with complaints of Foot Pain. rn 13:05 The patient presents with pain. The patient presents with pain, that is acute. The rn complaints affect the right foot. 13:05 Onset: The symptoms/episode began/occurred 2 day(s) ago. Modifying factors: The rn symptoms are alleviated by nothing, the symptoms are aggravated by weight bearing, movement. Associated signs and symptoms: Pertinent positives: swelling, warmth, Pertinent negatives: fever. Severity of symptoms: At their worst the symptoms were moderate, in the emergency department the symptoms are unchanged. The patient has not experienced similar symptoms in the past. Patient denies any injury or misstep. Reports started Thursday with warmth and redness and has progressed to swelling of the right foot. Radiates upward proximally but swelling isolated to the foot.. Historical: - Allergies: 11:28 Codeine (Hives, rash); cm10 - Home Meds: 11:28 atenolol 25 mg Oral tab [Active]; Lasix 40 mg oral tablet every other day [Active]; cm10 lisinopril 5 mg Oral tablet [Active]; aspirin 81 mg Oral TbEC [Active]; Nexium 20 mg Oral cpDR [Active]; - PMHx: 11:28 Anxiety; Back pain; GERD; Hypertension; cm10 - Immunization history:: Adult Immunizations unknown. - Social history:: Smoking status: Patient reports the use of cigarette tobacco products, smokes one pack cigarettes per day. - Family history:: not pertinent. - Hospitalizations: : No recent hospitalization is reported. ROS: 13:05 Constitutional: Negative for fever, chills, and weight loss, Cardiovascular: Negative rn for chest pain, palpitations, and edema, Respiratory: Negative for shortness of breath, cough, wheezing, and pleuritic chest pain, Abdomen/GI: Negative for abdominal pain, nausea, vomiting, diarrhea, and constipation, Back: Negative for injury and pain, MS/Extremity: Positive for right foot swelling and pain Skin: Negative for injury, rash, and discoloration, Neuro: Negative for headache, weakness, numbness, tingling, and seizure, Exam: 12:34 ECG was reviewed by the Attending Physician. rn 13:05 Constitutional: This is a well developed, well nourished patient who is awake, alert, rn and in no acute distress. Cardiovascular: Regular rate and rhythm. No pulse deficits. Respiratory: No increased work of breathing, no retractions or nasal flaring. Skin: No open wounds of right lower extremity MS/ Extremity: Pulses equal, no cyanosis. Right foot with increased circumference and tenderness compared to left foot, strong dorsalis pedis pulse, mild erythema on the instep that radiates up towards ankle, no signs of lymphangitis proximally. No calf tenderness or swelling. Vital Signs: 11:25 BP 137 / 77; Pulse 71; Resp 18; Temp 98.2(O); Pulse Ox 100% on R/A; Weight 101.15 kg; cm10 Height 5 ft. 6 in. ; Pain 10/10; 11:56 BP 146 / 68; Pulse 60; Resp 18; Pulse Ox 98% on R/A; ld1 12:29 BP 124 / 99; Pulse 69; Resp 18; Pulse Ox 100% on R/A; ld1 14:00 BP 130 / 95; Pulse 65; Resp 17; Pulse Ox 99% on R/A; rs5 11:25 Body Mass Index 35.99 (101.15 kg, 167.64 cm) cm10 11:25 Pain Scale: Adult cm10 MDM: 11:19 Patient medically screened. rn 14:11 Differential diagnosis: arthritis, gout, Pseudogout, cellulitis, DVT, arterial rn insufficiency. Data reviewed: vital signs, nurses notes, lab test result(s), radiologic studies, doppler, plain films, and as a result, I will admit patient. Consideration of Admission/Observation Escalation of care including admission/observation considered. Patient declines admission, wants to go home and trial of oral antibiotics. Patient understands risks and benefits of both scenarios and chooses to go home. Daughter in the room when we had this conversation.. Counseling: I had a detailed discussion with the patient and/or guardian regarding the historical points, exam findings, and any diagnostic results supporting the discharge/admit diagnosis, lab results, radiology results. Refusal of service: The patient/guardian displays adequate decision making capability and despite a detailed discussion of alternatives, benefits, risks, and consequences refuses: Admission to the hospital for further work-up and treatment. Special discussion: Based on the history and exam findings, there is no indication for further emergent testing or inpatient evaluation. I discussed with the patient/guardian the need to see the primary care provider for further evaluation of the symptoms. 03/24 11:33 Order name: Blood Culture Adult (2) rn 03/24 11:33 Order name: CBC with Diff; Complete Time: 12:33 rn 03/24 11:33 Order name: CMP; Complete Time: 12:53 rn 03/24 11:33 Order name: Lactate w/ 2H reflex if indic.; Complete Time: 12:53 rn 03/24 11:33 Order name: Protime (+inr); Complete Time: 12:33 rn 03/24 11:33 Order name: Ptt, Activated; Complete Time: 12:33 rn 03/24 11:33 Order name: Extremity Venous Uni Ltd US; Complete Time: 13:48 rn 03/24 11:33 Order name: Lower Extremity Artery Uni Ltd US; Complete Time: 13:48 rn 03/24 11:33 Order name: XRAY Foot RIGHT 3 View; Complete Time: 12:33 rn 03/24 11:33 Order name: EKG; Complete Time: 11:34 rn 03/24 11:33 Order name: Accucheck; Complete Time: 11:56 rn 03/24 11:33 Order name: Cardiac monitoring; Complete Time: 11:56 rn 03/24 11:33 Order name: EKG - Nurse/Tech; Complete Time: 11:56 rn 03/24 11:33 Order name: IV Saline Lock - Large Bore; Complete Time: 11:56 rn 03/24 11:33 Order name: Labs collected and sent; Complete Time: 11:56 rn 03/24 11:33 Order name: O2 Per Protocol; Complete Time: 11:34 rn 03/24 11:33 Order name: O2 Sat Monitoring; Complete Time: 11:34 rn 03/24 11:33 Order name: Vital Signs; Complete Time: 11:56 rn EC:34 Rate is 65 beats/min. Rhythm is regular. QRS [place] is Normal. VA interval is normal. QRS rn interval is normal. QT interval is normal. No Q waves. T waves are Normal. No ST changes noted. Clinical impression: NSR w/ Non-specific ST/T Changes. Interpreted by me. Reviewed by me. Administered Medications: 12:30 Drug: morphine IVP or IV 4 mg IVP once over 4 mins Route: IVP; Infused Over: 4 mins; rs5 Site: right antecubital; 13:00 Follow up: Response: No adverse reaction rs5 12:30 Drug: Ondansetron IVP 4 mg IVP once; over 2 minutes Route: IVP; Site: right antecubital;rs5 13:00 Follow up: Response: No adverse reaction rs5 14:15 Drug: Trimethoprim-Sulfamethoxazole PO (160 mg-800 mg (DS) 2 tabs PO once Route: PO; rs5 14:25 Follow up: Response: No adverse reaction rs5 14:15 Drug: Rocephin IV 1 grams IV at calculated rate once; Given slow IV push per pharmacy rs5 instructions Route: IV; Rate: calculated rate; Site: left antecubital; 14:25 Follow up: Response: No adverse reaction rs5 14:15 Drug: Ketorolac IVP 30 mg IVP once Route: IVP; Site: left antecubital; rs5 14:25 Follow up: Response: No adverse reaction rs5 Disposition Summary: 03/24/23 14:12 Discharge Ordered Notes: Location: Home rn Problem: new rn Symptoms: have improved rn Condition: Stable rn Diagnosis - Cellulitis of right lower limb rn Followup: rn - With: Private Physician - When: 2 - 3 days - Reason: Recheck today's complaints, Re-evaluation by your physician Discharge Instructions: - Discharge Summary Sheet rn - Cellulitis, Adult rn Forms: - Medication Reconciliation Form rn - Thank You Letter rn - Antibiotic air turning machine feeder - Prescription Opioid Use rn - Patient Portal Instructions rn - Leadership Thank You Letter rn Prescriptions: - Bactrim DS 800-160 mg Oral Tablet - take 1 tablet ORAL route every 12 hours for 10 days; 20 tablet; Refills: 0, rn Product Selection Permitted - Doxycycline Monohydrate 100 mg Oral Tablet - take 1 tablet ORAL route every 12 hours for 10 days; 20 tablet; Refills: 0, rn Product Selection Permitted Signatures: Dispatcher [employer] Terrence Vargas MD MD rn Sotelo, Ricky, RN RN rs5 Yanni Mata, RN RN cm10
[2023-03-24] MEDS ORDERED: CEFTRIAXONE 1000 MG/VIAL ONE (14:32)
[2023-03-24] MEDS ORDERED: SMZ./TMP. 800/160 MG TABLET ONE (14:32)
[2023-03-24] MEDS ORDERED: KETOROLAC 30 MG/ML INJ ONE (14:33)
[2023-03-24 14:42] VITALS: BP 124/99; TEMP 98.2; O2SAT 100
--- NOTE | 2023-03-25 13:07 | EKG ---
Test Date: 2023-03-24 Test Time: 11:46:51 Occupational Therapist'S Assistant: Simi SI MEASUREMENT RESULTS: Intervals: Rate: 65 OH: 132 QRSD: 78 QT: 400 QTc: 416 [place]: P: 40 OH: 132 QRS: 43 T: 39 INTERPRETIVE STATEMENTS: Normal sinus rhythm with sinus arrhythmia Normal ECG Compared to ECG 12/16/2018 15:28:32 No significant changes Electronically Signed On 03-25-23 13:04:09 [employer] by Escobar Edmonds
== END 2023-03-24 14:30 | disposition home or self-care (01) ==
LOC: ER 11:15
DX: L03.115 Cellulitis of right lower limb (principal); F17.210 Nicotine dependence, cigarettes, uncomplicated; Z88.5 Allergy status to narcotic agent
CPT/HCPCS: 93005; 87040 ×2; 85025; 36415; 85610; 83605; 85730; 80053; 73630; 93926; 93971; 99284; J2405; J0696

== ENCOUNTER 2023-03-25 15:33 | Inpatient (IN) | payer OTHER ==
[2023-03-25] MEDS ORDERED: NA CHLORIDE 0.9% 250 ML ONE (16:43)
[2023-03-25] MEDS ORDERED: VANCOMYCIN 1 GM/VIAL ONE (16:43)
[2023-03-25] MEDS ORDERED: METHYLPREDNISOLONE 125 MG INJ ONE (17:57)
[2023-03-25] MEDS ORDERED: DIPHENHYDRAMINE 50 MG/ML VIAL ONE (17:58)
[2023-03-25] MEDS ORDERED: FAMOTIDINE 20 MG/2 ML VIAL IV ONE (17:58)
[2023-03-25] MEDS ORDERED: KETOROLAC 30 MG/ML INJ ONE (17:58)
[2023-03-25 18:21] LABS: Absolute Lymphocytes (CBC) 2.8 K/uL (0.7-4.9); Hematocrit 37.7 % (36.0-45.0); Lymphocytes % 35.6 % (15.3-44.8); MCV 92.6 fL (80-100); MPV 7.8 fL (7.6-11.3); Platelets 227 thou/uL (152-406); RBC Red Blood Cell Count 4.07 M/uL (3.86-4.86)
--- NOTE | 2023-03-25 18:55 | EDPHYS ---
Physician Documentation [facility] Name: Ariella Alexandre Age: 57 yrs Sex: Female : 1965 Arrival Date: 03/25/2023 Time: 15:33 Bed 14 Private MD: ED Physician Michael Reece HPI: 03/25 16:56 This 57 yrs old Female presents to ER via Wheelchair with complaints of leg kb infection-right. 16:56 Patient is a 57-year-old female who presents for cellulitis to the right foot that is kb radiated up to the ankle. States the redness and swelling started 4 days ago, was seen here yesterday and Dr. Montoya wanted to admit her but she could not stay at the hospital last night because she needed to take care of some things at home so she took oral antibiotics instead. States redness has spread this morning so she decided to come back to be admitted.. Historical: - Allergies: 15:46 Codeine (Hives, rash); cm10 19:05 vancomycin; db - PMHx: 15:46 Anxiety; Back pain; GERD; Hypertension; cm10 - Immunization history:: Adult Immunizations unknown. - Social history:: Smoking status: Patient reports the use of cigarette tobacco products, smokes one pack cigarettes per day. ROS: 16:55 Constitutional: Negative for fever, chills, and weight loss, kb 16:55 Skin: Positive for cellulitis, of the right leg, 16:55 All other systems are negative, Exam: 16:55 Constitutional: This is a well developed, well nourished patient who is awake, alert, kb and in no acute distress. Head/Face: Normocephalic, atraumatic. ENT: Moist Mucous membranes Respiratory: Respirations even and unlabored. No increased work of breathing. Talking in full sentences MS/ Extremity: Pulses equal, no cyanosis. Neurovascular intact. Full, normal range of motion. Neuro: Awake and alert, GCS 15, oriented to person, place, time, and situation. Moves all extremities. Normal gait. 16:55 Skin: cellulitis, that is mild, that is moderate, on the right foot, Vital Signs: 15:45 BP 145 / 74; Pulse 88; Resp 16; Temp 97.6; Pulse Ox 100% ; Weight 102.51 kg; Height 5 cm10 ft. 6 in. ; Pain 9/10; 16:10 BP 114 / 75; Pulse 65; Resp 16; Pulse Ox 100% on R/A; db 17:40 BP 124 / 65; Pulse 64; Resp 16; Pulse Ox 99% on R/A; db 18:00 BP 118 / 72; Pulse 63; Resp 18; Pulse Ox 98% on R/A; db 19:42 BP 106 / 51; Pulse 64; Resp 17 S; Pulse Ox 98% on R/A; ha1 20:35 BP 106 / 52; Pulse 64; Resp 18 S; Pulse Ox 100% on R/A; ha1 21:41 BP 102 / 60; Pulse 66; Resp 17 S; Pulse Ox 97% on R/A; ha1 22:00 BP 109 / 60; Pulse 66; Resp 17 S; Pulse Ox 96% on R/A; ha1 15:45 Body Mass Index 36.48 (102.51 kg, 167.64 cm) cm10 15:45 Pain Scale: Adult cm10 MDM: 15:40 Patient medically screened. kb 16:55 Data reviewed: vital signs, nurses notes. kb 16:56 Differential diagnosis: abscess, allergic reaction, cellulitis, insect bite. kb Consideration of Admission/Observation Patient was admitted/placed on observation. Escalation of care including admission/observation considered. Counseling: I had a detailed discussion with the patient and/or guardian regarding the historical points, exam findings, and any diagnostic results supporting the discharge/admit diagnosis, lab results, the need for further work-up and treatment in the hospital. 18:54 Management of patient was discussed with the following: Hospitalist: Dr Tello kb accepts pt for admission. 03/25 15:46 Order name: CBC with Diff; Complete Time: 18:47 kb 03/25 15:46 Order name: Basic Metabolic Panel; Complete Time: 18:51 kb 03/25 20:25 Order name: Urinalysis w/ reflexes EDMS 03/25 20:25 Order name: Basic Metabolic Panel EDMS 03/25 20:25 Order name: Basic Metabolic Panel EDMS 03/25 20:25 Order name: CBC with Automated Diff EDMS 03/25 20:25 Order name: CBC with Automated Diff EDMS 03/25 15:46 Order name: IV Start; Complete Time: 16:56 kb Administered Medications: 18:56 Discontinued: vancomycin1 grams IVPB once over 2 hrs db 17:11 Drug: vancoMYCIN IVPB 1 grams IVPB once over 2 hrs Route: IVPB; Infused Over: 2 hrs; db Site: left wrist; 17:40 Drug: diphenhydrAMINE IVP 12.5 mg IVP once Route: IVP; Site: left wrist; db 17:40 Drug: MethylPrednisoLONE IVP 125 mg IVP once Route: IVP; Site: left wrist; db 17:52 Drug: Famotidine IVP 20 mg IVP once; dilute with 10 mL 0.9% NaCl; give over 2 minutes db Route: IVP; Site: left wrist; 17:52 Drug: Ketorolac IVP 15 mg IVP once Route: IVP; Site: left wrist; db 18:55 Drug: ceFAZolin IVPB 2 grams IVPB once over 30 mins; (mix in 100 mL NS) Route: IVPB; db Infused Over: 30 mins; Site: right antecubital; 20:00 Follow up: Response: No adverse reaction; IV Status: Completed infusion; IV Intake: ha1 100ml Disposition: 17:26 I was immediately available on-site in the Emergency Department for consultation in the ms3 care of the patient. Disposition Summary: 03/25/23 18:54 Hospitalization Ordered Notes: Hospitalization Status: Inpatient Admission kb Provider: James Tello Location: Telemetry/[facility] (Inpatient) kb Condition: Stable kb Problem: new kb Symptoms: are unchanged kb Bed/Room Type: Standard Room Assignment: 222(03/25/23 22:25) [facility] Diagnosis - Cellulitis of right lower limb kb Forms: - Medication Reconciliation Form kb - SBAR form kb - Leadership Thank You Letter kb Signatures: Dispatcher [employer] Karley De La Torre, IMELDA COVINGTONP-Michael Fu DO DO ms3 Mary Mosley RN RN db Yanni Mata RN RN cm10 Camryn Lynch [id number] Veronica Da Silva RN ha1 Corrections: (The following items were deleted from the chart) 22:25 18:54 kb [id number]
--- NOTE | 2023-03-25 18:55 | ER ---
Nurse's Notes [facility] Name: Ariella Alexandre Age: 57 yrs Sex: Female : 1965 Arrival Date: 03/25/2023 Time: 15:33 Bed 14 Private MD: Diagnosis: Cellulitis of right lower limb Presentation: 03/25 15:45 Chief complaint: Patient states: was seen here yesterday for redness to right foot. Pt cm10 states that the pain and redness are getting worse. Coronavirus screen: Vaccine status: Patient reports receiving the 1st dose of the Covid vaccine. Client denies travel out of the [place] in the last 14 days. Ebola Screen: Patient denies travel to an Ebola-affected area in the 21 days before illness onset. No symptoms or risks identified at this time. Initial Sepsis Screen: Does the patient meet any 2 criteria? No. Patient's initial sepsis screen is negative. Does the patient have a suspected source of infection? No. Patient's initial sepsis screen is negative. Risk Assessment: Do you want to hurt yourself or someone else? Patient reports no desire to harm self or others. Onset of symptoms was March 25, 2023. 15:45 Method Of Arrival: Wheelchair cm10 15:45 Acuity: DAHIANA 3 cm10 Historical: - Allergies: 15:46 Codeine (Hives, rash); cm10 19:05 vancomycin; db - PMHx: 15:46 Anxiety; Back pain; GERD; Hypertension; cm10 - Immunization history:: Adult Immunizations unknown. - Social history:: Smoking status: Patient reports the use of cigarette tobacco products, smokes one pack cigarettes per day. Screenin:57 [facility] ED Fall Risk Assessment (Adult) History of falling in the last 3 months, db including since admission No falls in past 3 months (0 pts) Confusion or Disorientation No (0 pts) Intoxicated or Sedated No (0 pts) Impaired Gait Yes (1 pt) Mobility Assist Device Used Yes (1 pt) Altered Elimination No (0 pt) Score/Fall Risk Level 0 - 2 = Low Risk Oriented to surroundings, Maintained a safe environment. Abuse screen: Denies threats or abuse. Denies injuries from another. Nutritional screening: No deficits noted. Tuberculosis screening: No symptoms or risk factors identified. Assessment: 17:41 Reassessment: PATIENT REPORTS HIVES AND RASH TO LEFT ARM WITH VANCOMYCIN INFUSING. db MEDICATION STOPPED. PROVIDER SABINE ASSESSED PT AND ORDERED MEDICATIONS FOR REACTION. SEE MAR. 18:57 Reassessment: Patient appears in no apparent distress at this time. Patient and/or db family updated on plan of care and expected duration. Pain level reassessed. Patient is alert, oriented x 3, equal unlabored respirations, skin warm/dry/pink. LEFT ARM IS BETTER. General: Appears in no apparent distress. comfortable, Behavior is calm, cooperative. Pain: Complains of pain in right foot and right leg. Neuro: Level of Consciousness is awake, alert, obeys commands, Oriented to person, place, time, situation. 19:37 General: Appears comfortable, Behavior is calm, cooperative. Pain: Complains of pain in ha1 right ankle and medial aspect of right foot Pain does not radiate. Pain currently is 5 out of 10 on a pain scale. Quality of pain is described as burning. Neuro: Level of Consciousness is awake, alert, obeys commands, Oriented to person, place, time, situation. Respiratory: Airway is patent Respiratory effort is even, unlabored, Respiratory pattern is regular, symmetrical. GI: No signs and/or symptoms were reported involving the gastrointestinal system. Abdomen is flat, non-distended. Derm: Skin is. Derm:. Musculoskeletal: Circulation, motion, and sensation intact. Swelling present in right ankle. 20:35 Reassessment: Patient and/or family updated on plan of care and expected duration. Pain ha1 level reassessed. Patient is alert, oriented x 3, equal unlabored respirations, skin warm/dry/pink. 21:41 Reassessment: Patient and/or family updated on plan of care and expected duration. Pain ha1 level reassessed. Patient is alert, oriented x 3, equal unlabored respirations, skin warm/dry/pink. 22:45 Reassessment: ATTEMPTED TO GIVE REPORT. ha1 23:21 Reassessment: Patient and/or family updated on plan of care and expected duration. Pain ha1 level reassessed. Patient is alert, oriented x 3, equal unlabored respirations, skin warm/dry/pink. REPORT GIVEN TO DECLAN RENEE. Vital Signs: 15:45 BP 145 / 74; Pulse 88; Resp 16; Temp 97.6; Pulse Ox 100% ; Weight 102.51 kg; Height 5 cm10 ft. 6 in. ; Pain 9/10; 16:10 BP 114 / 75; Pulse 65; Resp 16; Pulse Ox 100% on R/A; db 17:40 BP 124 / 65; Pulse 64; Resp 16; Pulse Ox 99% on R/A; db 18:00 BP 118 / 72; Pulse 63; Resp 18; Pulse Ox 98% on R/A; db 19:42 BP 106 / 51; Pulse 64; Resp 17 S; Pulse Ox 98% on R/A; ha1 20:35 BP 106 / 52; Pulse 64; Resp 18 S; Pulse Ox 100% on R/A; ha1 21:41 BP 102 / 60; Pulse 66; Resp 17 S; Pulse Ox 97% on R/A; ha1 22:00 BP 109 / 60; Pulse 66; Resp 17 S; Pulse Ox 96% on R/A; ha1 15:45 Body Mass Index 36.48 (102.51 kg, 167.64 cm) cm10 15:45 Pain Scale: Adult cm10 ED Course: 15:35 Patient arrived in ED. im 15:36 Karley Mena FNP-C is PHCP. kb 15:36 Michael Reece DO is Attending Physician. kb 15:46 Triage completed. cm10 15:47 Arm band placed on Patient placed in an exam room, on a stretcher. cm10 16:18 Mary Mosley, DECLAN is Primary Nurse. db 18:12 Inserted saline lock: 22 gauge in right antecubital area, using aseptic technique. hb ,using aseptic technique. US GUIDED Blood collected. 18:54 James Tello MD is Hospitalizing Provider. kb 18:57 Patient has correct armband on for positive identification. Bed in low position. Call db light in reach. Side rails up X2. Provided Education on:. Pulse ox on. NIBP on. Warm blanket given. 23:55 No provider procedures requiring assistance completed. Patient admitted, IV remains in ha1 place. Administered Medications: 18:56 Discontinued: vancomycin1 grams IVPB once over 2 hrs db 17:11 Drug: vancoMYCIN IVPB 1 grams IVPB once over 2 hrs Route: IVPB; Infused Over: 2 hrs; db Site: left wrist; 17:40 Drug: diphenhydrAMINE IVP 12.5 mg IVP once Route: IVP; Site: left wrist; db 17:40 Drug: MethylPrednisoLONE IVP 125 mg IVP once Route: IVP; Site: left wrist; db 17:52 Drug: Famotidine IVP 20 mg IVP once; dilute with 10 mL 0.9% NaCl; give over 2 minutes db Route: IVP; Site: left wrist; 17:52 Drug: Ketorolac IVP 15 mg IVP once Route: IVP; Site: left wrist; db 18:55 Drug: ceFAZolin IVPB 2 grams IVPB once over 30 mins; (mix in 100 mL NS) Route: IVPB; db Infused Over: 30 mins; Site: right antecubital; 20:00 Follow up: Response: No adverse reaction; IV Status: Completed infusion; IV Intake: ha1 100ml Medication: 23:56 VIS not applicable for this client. ha1 Intake: 20:00 IV: 100ml; Total: 100ml. ha1 Outcome: 18:54 Decision to Hospitalize by Provider. kb 23:55 Admitted to Med/surg accompanied by tech, via wheelchair, room 222, with chart, ha1 23:55 Condition: stable 23:55 Instructed on the need for admit, Demonstrated understanding of instructions, 23:57 Patient left the ED. ha1 Signatures: Karley Mena, ZOOGLER-C ZOOGLER-CkBernadette Rodriguez, DECLAN MANRIQUEZ Veronica Da Silva RN RN ha1 Mary Mosley RN RN db Mendoza, Itzel im Martinez, Clarissa, RN RN cm10
[2023-03-25] MEDS ORDERED: CEFAZOLIN SODIUM 2 GM/VIAL ONE (19:04)
[2023-03-25] MEDS ORDERED: NA CHLORIDE 0.9% 100 ML ONE (19:04)
[2023-03-25] MEDS ORDERED: ONDANSETRON 4 MG/2 ML VIAL IV PRN (20:19)
[2023-03-25] MEDS ORDERED: ACETAMINOPHEN 325 MG TABLET PO PRN (20:19)
--- NOTE | 2023-03-25 20:19 | P.HP ---
Certification for Inpatient Patient admitted to: Observation With expected LOS: <2 Midnights Practitioner: I am a practitioner with admitting privileges, knowledge of patient current condition, hospital course, and medical plan of care. Services: Services provided to patient in accordance with Admission requirements found in Title 42 Section 412.3 of the Code of Federal Regulations Patient History Date of Service: 03/26/23 Reason for admission: Cellulitis of the right foot. History of Present Illness: 57-year-old female patient has a medical history significant for hypertension, hyperlipidemia, reflux emergencies was evaluated for episode of right foot cellulitis. She was seen about 3 to 4 days ago and had redness and pain in the right foot and there was concern for cellulitis. She was pancultured and started on broad-spectrum antibiotic and does a decision to admit but she decided to go against inpatient care because she had other issues to take care of her in the home front. She returns today with persistent pain in the right foot despite oral antibiotic therapy and she agrees to inpatient care. Allergies codeine [Codeine] Allergy (Verified 08/11/11 17:14) Hives vancomycin Allergy (Verified 03/26/23 00:08) Itching/Hives/Rash Home Medications: Aspirin Chewable [Aspirin Chewable*] 1 tab PO DAILY 12/16/18 atenoloL [Tenormin*] 1 tab PO BEDTIME 12/16/18 ALPRAZolam [Xanax] 0.25 mg PO BID PRN 03/26/23 Esomeprazole Mag Trihydrate [Nexium] 40 mg PO DAILY 03/26/23 Furosemide [Lasix] 40 mg PO Q48H 03/26/23 lisinopriL [Lisinopril] 5 mg PO DAILY 03/26/23 - Past Medical/Surgical History Diabetic: No -: Hypertension -: GERD -: back pain -: anxiety -: appendectomy -: back sx -: ear tubes -: left hand sx - Family History Mother -: Heart disease Notes: copd. kidney failure Father -: Cancer Notes: intestinal CA - Social History Alcohol use: No CD- Drugs: No Caffeine use: Yes Review of Systems General: Malaise Eyes: Unremarkable ENT: Unremarkable Respiratory: Unremarkable Cardiovascular: Unremarkable Gastrointestinal: Unremarkable Musculoskeletal: Foot Pain Integumentary: Other (hyperemia.) Neurological: Unremarkable Lymphatics: Unremarkable Physical Examination - Physical Exam General: Alert, Oriented x3 HEENT: Atraumatic Neck: Supple Respiratory: Normal air movement Cardiovascular: Regular rate/rhythm, Normal S1 S2 Gastrointestinal: Soft and benign Musculoskeletal: No swelling Neurological: Normal speech - Studies Laboratory Data (last 24 hrs) 03/25/23 03/25/23 18:07 17:31 WBC 7.70 Hgb 12.7 Hct 37.7 Plt Count 227 Sodium 142 Potassium 5.0 BUN 22 H Creatinine 0.87 Glucose 89 Assessment and Plan - Plan Cellulitis of the right foot. Patient does have significant redness and pain in the RIGHT foot with swelling. We have started empiric antibiotic therapy with doxycycline and cefepime. She did have an allergic reaction to vancomycin therapy. Will continue to follow blood cultures for adjustment to antibiotic therapy. Will consider further imaging if cellulitis does not resolve in a timely manner. Hypertension: Will monitor vital signs per unit protocol and continue antihypertensive medications Hyperlipidemia: We will continue statin therapy Prophylaxis: Lovenox for DVT prophylaxis CODE STATUS: Full code Disposition: We will treat her right foot cellulitis and she will be discharged once cellulitis episode is deemed to be controlled. - Advance Directives Does patient have a Living Will: No Does patient have a Durable POA for Healthcare: No
[2023-03-25] MEDS: NA CHLORIDE 0.9% 1,000 ML IV SCH (21:50)
[2023-03-25] MEDS ORDERED: NA CHLORIDE 0.9% 1,000 ML ONE (22:32)
[2023-03-26 00:08] VITALS: BMI 36.1
[2023-03-26 02:56] LABS: Potassium 4.1 mEq/L (3.5-5.1)
[2023-03-26 03:02] LABS: Urine Bacteria None Seen /HPF (<20); Urine Mucus 3+ /HPF (None Seen); Urine RBC None Seen /HPF (None Seen)
[2023-03-26 03:07] LABS: Specific Gravity 1.044 (1.005-1.030); Urine Clarity Extremely Turbid (Clear); Urine Color Orange (Yellow)
[2023-03-26 03:08] LABS: Urine Bilirubin Negative (Negative); Urine Blood Negative (Negative); Urine Glucose Negative (Negative); Urine Protein 1+ (Negative); Urine Urobilinogen Normal (Normal); Urine pH 5.5 (5.0-7.0)
[2023-03-26 03:15] LABS: Absolute Lymphocytes (CBC) 0.9 K/uL (0.7-4.9); Hematocrit 37.5 % (36.0-45.0); Lymphocytes % 13.9 % (15.3-44.8); MCV 93.4 fL (80-100); MPV 8.3 fL (7.6-11.3); Platelets 222 thou/uL (152-406); RBC Red Blood Cell Count 4.02 M/uL (3.86-4.86)
[2023-03-26 03:58] VITALS: O2SAT 96
[2023-03-26] MEDS ORDERED: ALPRAZOLAM 0.5 MG TABLET PO ONE (04:23)
[2023-03-26 04:47] LABS: Blood Morphology Comment NOT SEEN (NOT SEEN); Platelet Estimate ADEQ
[2023-03-26] MEDS: ENOXAPARIN 40 MG/0.4 ML SQ SCH (10:25)
[2023-03-26] MEDS: CEFEPIME 1 GM in NA CHLORIDE 0.9% 100 ML IV SCH ×2 (10:26→20:32)
[2023-03-26] MEDS: DOXYCYCLINE 100 MG in NA CHLORIDE 0.9% 100 ML IVPB SCH ×2 (10:27→20:32)
[2023-03-26] MEDS: NA CHLORIDE 0.9% 1,000 ML IV SCH (10:27)
--- NOTE | 2023-03-26 10:52 | P.PN ---
Subjective Date of Service: 03/26/23 Chief Complaint: Cellulitis of the right foot. reports mild swelling, pain right lower foot/ankle, denies fever - Physical Exam General: Alert, Oriented x3 HEENT: Atraumatic Neck: Supple Respiratory: Normal air movement Cardiovascular: Regular rate/rhythm, Normal S1 S2 Gastrointestinal: Soft and benign Musculoskeletal: +1 RLE edema, erythema Neurological: Normal speech Review of Systems per HPI Physical Examination - Vital Signs Temperature: 97.3 F Blood Pressure: 125/61 Pulse: 69 Respirations: 16 Pulse Ox (%): 93 - Studies Laboratory Data (last 24 hrs) 03/25/23 03/25/23 18:07 17:31 WBC 7.70 Hgb 12.7 Hct 37.7 Plt Count 227 Sodium 142 Potassium 5.0 BUN 22 H Creatinine 0.87 Glucose 89 Assessment And Plan - Plan - Plan Cellulitis of the right foot. Failed outpatient treatment antibiotics Patient does have significant redness and pain in the RIGHT foot with swelling. We have started empiric antibiotic therapy with doxycycline and cefepime. She did have an allergic reaction to vancomycin therapy. Will continue to follow blood cultures for adjustment to antibiotic therapy. Will consider further imaging if cellulitis does not resolve in a timely manner. Doxycycline twice daily, Cefepime twice daily, Tramadol for pain 03/24 3-view x-ray FINDINGS: No fracture, dislocation or aggressive marrow pattern. Tiny calcaneal spurs 03/24 Lower extremity Doppler IMPRESSION: No DVT in the right lower extremity Acute on chronic kidney injury Nephrology consult, gentle IV fluids given Anxiety Back pain GERD Hypertension: Will monitor vital signs per unit protocol and continue antihypertensive medications Resume appropriate home medications Hyperlipidemia: We will continue statin therapy Diet cardiac Prophylaxis: Lovenox for DVT prophylaxis CODE STATUS: Full code Disposition: We will treat her right foot cellulitis and she will be discharged once cellulitis episode is deemed to be controlled. Discharge Plan: Home Plan to discharge in: 48 Hours - Code Status/Comfort Care Code Status: Full Code Physician Review: Patient Assessed, Agree with Above Assessment and Plan Critical Care: No Time Spent Managing PTS Care (In Minutes): 35
[2023-03-26] MEDS ORDERED: ALPRAZOLAM 0.25 MG TABLET PO PRN (10:55)
[2023-03-26] MEDS: FUROSEMIDE 40 MG TABLET PO SCH (14:00)
[2023-03-26] MEDS: PANTOPRAZOLE 40MG TABLET PO SCH (14:01)
[2023-03-26] MEDS ORDERED: TRAMADOL HCL 50 MG TAB PO PRN (14:09)
[2023-03-26] MEDS: atenoloL 25 MG TAB PO SCH ×2 (17:17→21:00)
[2023-03-26] MEDS: TRAMADOL HCL 50 MG TAB PO PRN (17:26)
--- NOTE | 2023-03-26 18:22 | P.CNS ---
Date of Consult: 03/26/23 Reason for Consult: ROSITA Requesting Physician: Jennifer Harris Chief Complaint: Cellulitis of the right foot. History of Present Illness: 57-year-old female patient has a medical history significant for hypertension, hyperlipidemia, reflux emergencies was evaluated for episode of right foot cellulitis. She was seen about 3 to 4 days ago and had redness and pain in the right foot and there was concern for cellulitis. She was pancultured and started on broad-spectrum antibiotic and does a decision to admit but she decided to go against inpatient care because she had other issues to take care of her in the home front. She returns today with persistent pain in the right foot despite oral antibiotic therapy and she agrees to inpatient care. 16:56 This 57 yrs old Female presents to ER via Wheelchair with complaints of leg kb infection-right. 16:56 Patient is a 57-year-old female who presents for cellulitis to the right foot that is kb radiated up to the ankle. States the redness and swelling started 4 days ago, w as seen here yesterday and Dr. Montoya wanted to admit her but she could not stay at the hospital last night because she needed to take care of some things at home so she took oral antibiotics instead. States redness has spread this morning so she decided to come back to be admitted. Allergies codeine [Codeine] Allergy (Verified 08/11/11 17:14) Hives vancomycin Allergy (Verified 03/26/23 00:08) Itching/Hives/Rash Home medications list reviewed: Yes Home Medications: Aspirin Chewable [Aspirin Chewable*] 1 tab PO DAILY 12/16/18 atenoloL [Tenormin*] 1 tab PO BEDTIME 12/16/18 ALPRAZolam [Xanax] 0.25 mg PO BID PRN 03/26/23 Esomeprazole Mag Trihydrate [Nexium] 40 mg PO DAILY 03/26/23 Furosemide [Lasix] 40 mg PO Q48H 03/26/23 lisinopriL [Lisinopril] 5 mg PO DAILY 03/26/23 - Past Medical/Surgical History Diabetic: No -: Hypertension -: GERD -: back pain -: anxiety -: Palpitations-sees color stripper in [place] -: appendectomy -: back sx -: ear tubes -: left hand sx -: Tubal Ligation - Family History Mother Medical History: Heart disease Notes: copd. kidney failure Father Medical History: Cancer Notes: intestinal CA - Social History Smoking Status: Current every day smoker Alcohol use: No CD- Drugs: No Caffeine use: Yes Place of Residence: Home Review of Systems 10-point ROS is otherwise unremarkable Physical Examination Temp Pulse Resp BP Pulse Ox 97.3 F 76 16 135/67 93 03/26/23 14:17 03/26/23 17:17 03/26/23 14:17 03/26/23 17:17 03/26/23 14:17 Laboratory Data (last 24 hrs) 03/25/23 03/25/23 18:07 17:31 WBC 7.70 Hgb 12.7 Hct 37.7 Plt Count 227 Sodium 142 Potassium 5.0 BUN 22 H Creatinine 0.87 Glucose 89 Conclusions/Impression: CKD II Proteinuria? -No NSAIDs -Repeat UA Hypercalcemia, resolved HTN with CKD -Continue Atenolol -Continue Lisinopril Peripheral Edema -Low sodium diet -Daily weight Hyperglycemia A1C 5.3 -Low sugar diet B12 Deficiency -Start daily B12 RLE Cellulitis -Continue Abx Hospitalist and ER notes reviewed Thank you kindly for the consultation
[2023-03-26] MEDS ORDERED: atenoloL 25 MG TAB PO SCH (21:00)
[2023-03-27] MEDS: CYANOCOBALAMIN 1000MCG/ML INJ SQ SCH ×2 (01:00→08:17)
[2023-03-27 02:32] LABS: Hematocrit 31.6 % (36.0-45.0); Lymphocytes % 27.4 % (15.3-44.8); MCV 92.9 fL (80-100); MPV 8.3 fL (7.6-11.3); Platelets 208 thou/uL (152-406)
[2023-03-27 02:54] LABS: Albumin 2.9 g/dL (3.4-5.0); Bilirubin Total 0.2 mg/dL (0.2-1.0); Magnesium 1.7 mg/dL (1.6-2.4); Phosphorus 2.8 mg/dL (2.5-4.9); Protein, Total 5.7 g/dL (6.4-8.2); Uric Acid 4.8 mg/dL (2.6-6.0)
[2023-03-27] MEDS: PANTOPRAZOLE 40MG TABLET PO SCH (06:42)
[2023-03-27] MEDS: lisinopriL 5 MG TAB PO SCH (08:16)
[2023-03-27] MEDS: ASPIRIN 81 MG CHEWABLE TABLET PO SCH (08:16)
[2023-03-27] MEDS: TRAMADOL HCL 50 MG TAB PO PRN (08:17)
[2023-03-27] MEDS: atenoloL 25 MG TAB PO SCH ×2 (08:17→21:00)
[2023-03-27] MEDS: DOXYCYCLINE 100 MG in NA CHLORIDE 0.9% 100 ML IVPB SCH ×2 (08:18→23:28)
[2023-03-27] MEDS: CEFEPIME 1 GM in NA CHLORIDE 0.9% 100 ML IV SCH ×2 (08:18→22:54)
[2023-03-27] MEDS: ENOXAPARIN 40 MG/0.4 ML SQ SCH (08:27)
--- NOTE | 2023-03-27 11:15 | P.PN ---
Subjective Date of Service: 03/27/23 Chief Complaint: Cellulitis of the right foot. reports mild swelling, pain right lower foot/ankle, denies fever (no change on abx, from yesterday) - Physical Exam General: Alert, Oriented x3 HEENT: Atraumatic Neck: Supple Respiratory: Normal air movement Cardiovascular: Regular rate/rhythm, Normal S1 S2 Gastrointestinal: Soft and benign Musculoskeletal: +1 RLE edema, erythema Neurological: Normal speech Review of Systems per HPI Physical Examination - Vital Signs Temperature: 97.1 F Blood Pressure: 168/77 Pulse: 63 Respirations: 18 Pulse Ox (%): 97 Assessment And Plan - Plan - Plan Cellulitis of the right foot. Failed outpatient treatment antibiotics Patient does have significant redness and pain in the RIGHT foot with swelling. We have started empiric antibiotic therapy with doxycycline and cefepime. She did have an allergic reaction to vancomycin therapy. Will continue to follow blood cultures for adjustment to antibiotic therapy. Will consider further imaging if cellulitis does not resolve in a timely manner. Doxycycline twice daily, Cefepime twice daily, Tramadol for pain MRI RLE will add steroids, torodol for possible plantar fasciitis 03/24 3-view x-ray FINDINGS: No fracture, dislocation or aggressive marrow pattern. Tiny calcaneal spurs 03/24 Lower extremity Doppler IMPRESSION: No DVT in the right lower extremity Acute on chronic kidney injury Nephrology consult, gentle IV fluids given Anxiety Back pain GERD Hypertension: Will monitor vital signs per unit protocol and continue antihypertensive medi cations Resume appropriate home medications Hyperlipidemia: We will continue statin therapy Diet cardiac Prophylaxis: Lovenox for DVT prophylaxis CODE STATUS: Full code Disposition: We will treat her right foot cellulitis and she will be discharged once cellulitis episode is deemed to be controlled. Discharge Plan: Home Physician Review: Patient Assessed, Agree with Above Assessment and Plan Critical Care: No Time Spent Managing PTS Care (In Minutes): 35
[2023-03-27] MEDS ORDERED: METHYLPREDNISOLONE 125 MG INJ IV ONE (14:25)
--- NOTE | 2023-03-27 15:52 | RAD REPORT ---
EXAM DESCRIPTION: MRI - Foot Right Wo Cont - 03/27/2023 3:05 pm CLINICAL HISTORY: cellulitis RLE (foot) COMPARISON: Lower Extremity Artery [facility] dated 03/24/2023; Foot Right 3 View dated 03/24/2023 TECHNIQUE: Multiplanar multisequence MRI of the right foot, obtained without IV contrast. FINDINGS: No evidence of acute fracture or suspicious bone marrow signal. Moderate chondromalacia along the middle subtalar articular facet with pronounced subchondral cystic changes along the talus. Otherwise normal signal along the sinus tarsi. Tibiotalar joint and midfoot articulations appear grossly preserved. Mild ankle joint effusion. To the extent evaluated, there is mildly increased T2 signal along the deep fibers of the deltoid lig ament complex, could sequelae of sprain or even a partial tear. The plantar aponeurosis is unremarkable. There is mild soft tissue swelling and subcutaneous edema along the dorsal, more lateral aspect of th e mid to forefoot. No appreciable fluid collections. IMPRESSION: Mild soft tissue swelling and subcutaneous edema along the dorsal, more lateral, aspect of the mid to forefoot suggesting cellulitis. No appreciable fluid collections within limits of nonco ntrast evaluation. Moderate subtalar middle articular facet chondromalacia. Mild ankle joint effusion. Findings suggestive of sprain or even partial tear along the deep aspect of the deltoid ligament comp kam.
[2023-03-27] MEDS ORDERED: METHYLPREDNISOLONE 125 MG INJ ONE (16:28)
[2023-03-27] MEDS: KETOROLAC 30 MG/ML INJ IV PRN (16:30)
[2023-03-28 00:56] LABS: Specific Gravity 1.028 (1.005-1.030); Urine Bacteria None Seen /HPF (<20); Urine Bilirubin NEGATIVE (Negative); Urine Blood Negative (Negative); Urine Clarity Clear (Clear); Urine Color Light-Yellow (Yellow); Urine Glucose NEGATIVE (Negative); Urine Mucus Slight /HPF (None Seen); Urine Protein NEGATIVE (Negative); Urine RBC <5 /HPF (None Seen); Urine Urobilinogen Normal (Normal)
[2023-03-28 01:09] LABS: UR PROTEIN 18.4 mg/dL (<11.9); Urine Protein/Creatinine Ratio 0.17 ratio (<0.15)
[2023-03-28 01:21] LABS: UR MICROALBUMIN 0.6 mg/dL (< 1.9)
[2023-03-28] MEDS: PANTOPRAZOLE 40MG TABLET PO SCH (06:18)
[2023-03-28 07:06] VITALS: BP 124/54; TEMP 97.2
--- NOTE | 2023-03-28 08:02 | P.DS ---
Admission Date: 03/27/23 Discharge Date: 03/28/23 Disposition: ROUTINE DISCHARGE Discharge Condition: FAIR Reason for Admission: Cellulitis of the right foot. Brief History of Present Illness: 57-year-old female patient has a medical history significant for hypertension, hyperlipidemia, reflux emergencies was evaluated for episode of right foot cellulitis. She was seen about 3 to 4 days ago and had redness and pain in the right foot and there was concern for cellulitis. She was pancultured and started on broad-spectrum antibiotic and does a decision to admit but she decided to go against inpatient care because she had other issues to take care of her in the home front. She returns today with persistent pain in the right foot despite oral antibiotic therapy and she agrees to inpatient care. - Physical Exam General: Alert, Oriented x3 HEENT: Atraumatic Neck: Supple Respiratory: Normal air movement Cardiovascular: Regular rate/rhythm, Normal S1 S2 Gastrointestinal: Soft and benign Musculoskeletal: No swelling Neurological: Normal speech Hospital Course: Cellulitis of the right foot. Failed outpatient treatment antibiotics Patient does have significant redness and pain in the RIGHT foot with swelling. We have started empiric antibiotic therapy with doxycycline and cefepime. She did have an allergic reaction to vancomycin therapy. Will continue to follow blood cultures for adjustment to antibiotic therapy. Will consider further imaging if cellulitis does not resolve in a timely manner. Doxycycline twice daily, Cefepime twice daily, Tramadol for pain MRI RLE will add steroids, torodol for possible plantar fasciitis 03/24 3-view x-ray FINDINGS: No fracture, dislocation or aggressive marrow pattern. Tiny calcaneal spurs 03/24 Lower extremity Doppler IMPRESSION: No DVT in the right lower extremit 03/27 MRI Right Foot IMPRESSION: Mild soft tissue swelling and subcutaneous edema along the dorsal, more lateral, aspect of the mid to forefoot suggesting cellulitis. No appreciable fluid collections within limits of noncontrast evaluation. Moderate subtalar middle articular facet chondromalacia. Mild ankle joint effusion. Findings suggestive of sprain or even partial tear along the deep aspect of the deltoid ligament complex. Plan to disharge home today with she or brace, Acute on chronic kidney injury Nephrology consult, gentle IV fluids given Nephrolgy CKD II Proteinuria? -No NSAIDs -Repeat UA Hypercalcemia, resolved HTN with CKD -Continue Atenolol -Continue Lisinopril Peripheral Edema -Low sodium diet -Daily weight Hyperglycemia A1C 5.3 -Low sugar diet B12 Deficiency -Start daily B12 INSTRUCTIONS: Physician Discharge Instructions: -DC IV and DC home -Follow-up with PCP in 1 to 2 weeks -Please call Dr. Harris at [phone] if any questions regarding hospital stay -Please call nursing station at [phone] if any nursing or medication questions -Return to the emergency room if symptoms worseny Vital Signs/Physical Exam: Temp Pulse Resp BP Pulse Ox 97.2 F 51 18 124/54 L 96 03/28/23 07:03 03/28/23 07:03 03/28/23 07:03 03/28/23 07:03 03/28/23 07:03 Laboratory Data at Discharge: WBC 7.10 thou/uL (4.3-10.9) 03/27/23 01:55 Hgb 11.0 g/dL (12.0-15.0) L D 03/27/23 01:55 Hct 31.6 % (36.0-45.0) L 03/27/23 01:55 Plt Count 208 thou/uL (152-406) 03/27/23 01:55 Sodium 140 mEq/L (136-145) 03/27/23 01:55 Potassium 4.0 mEq/L (3.5-5.1) 03/27/23 01:55 BUN 22 mg/dL (7-18) H 03/27/23 01:55 Creatinine 0.78 mg/dL (0.55-1.02) 03/27/23 01:55 Glucose 147 mg/dL (74-106) H 03/27/23 01:55 Uric Acid 4.8 mg/dL (2.6-6.0) 03/27/23 01:55 Phosphorus 2.8 mg/dL (2.5-4.9) 03/27/23 01:55 Magnesium 1.7 mg/dL (1.6-2.4) 03/27/23 01:55 Total Bilirubin 0.2 mg/dL (0.2-1.0) 03/27/23 01:55 AST 5 U/L (15-37) L 03/27/23 01:55 ALT 15 U/L (13-56) 03/27/23 01:55 Alkaline Phosphatase 74 U/L (45-117) 03/27/23 01:55 Home Medications: Aspirin Chewable [Aspirin Chewable*] 1 tab PO DAILY 12/16/18 atenoloL [Tenormin*] 1 tab PO BEDTIME 12/16/18 ALPRAZolam [Xanax*] 0.25 mg PO BID PRN 03/26/23 Esomeprazole Mag Trihydrate [Nexium] 40 mg PO DAILY 03/26/23 Furosemide [Lasix*] 40 mg PO Q48H 03/26/23 lisinopriL [Lisinopril] 5 mg PO DAILY 03/26/23 Cyanocobalamin [Vitamin B-12*] 1,000 mcg SQ DAILY 15 Days #15 vial 03/28/23 Doxycycline Hyclate 100 mg PO BID 7 Days #14 mg 03/28/23 atenoloL [Tenormin*] 25 mg PO BID tab 03/28/23 traMADol HCL [Ultram*] 50 mg PO TID PRN 14 Days #20 tab 03/28/23 New Medications: Doxycycline Hyclate 100 mg PO BID 7 Days #14 mg traMADol HCL [Ultram*] 50 mg PO TID PRN 14 Days #20 tab PRN Reason: Pain Scale 5-7 (Moderate) Cyanocobalamin [Vitamin B-12*] 1,000 mcg SQ DAILY 15 Days #15 vial Physician Discharge Instructions: PROBLEM: GOAL: Clear understanding of disease process INSTRUCTIONS: Physician Discharge Instructions: -DC IV and DC home -Follow-up with PCP in 1 to 2 weeks -Please call Dr. Harris at [phone] if any questions regarding hospital stay -Please call nursing station at [phone] if any nursing or medication questions -Return to the emergency room if symptoms worsen Diet: ADA, low sodium Activity: Fall precautions DME: Date Ordered: Name of Company: [employer] Services Needed: None Date or Referral: IMMUNIZATION Influenza Vaccine Indicated: Influenza Vaccine Given: Date Given: Pneumonia Vaccine Indicated: Pneumonia Vaccine Given: Date Given: Patient... Followup: OOT,OOT [Primary Care Provider] -
[2023-03-28] MEDS: CEFEPIME 1 GM in NA CHLORIDE 0.9% 100 ML IV SCH (08:06)
[2023-03-28] MEDS: ENOXAPARIN 40 MG/0.4 ML SQ SCH (08:06)
[2023-03-28] MEDS: atenoloL 25 MG TAB PO SCH (08:07)
[2023-03-28] MEDS: DOXYCYCLINE 100 MG in NA CHLORIDE 0.9% 100 ML IVPB SCH (08:07)
[2023-03-28] MEDS: lisinopriL 5 MG TAB PO SCH (08:07)
[2023-03-28] MEDS: ASPIRIN 81 MG CHEWABLE TABLET PO SCH (08:08)
[2023-03-28] MEDS: CYANOCOBALAMIN 1000MCG/ML INJ SQ SCH (08:08)
[2023-03-28] MEDS: KETOROLAC 30 MG/ML INJ IV PRN (08:08)
[2023-03-28] MEDS: FUROSEMIDE 40 MG TABLET PO SCH (10:07)
[2023-03-28] MEDS ORDERED: POLYETHYL GLY 3350 17 GM/DOSE PO PRN (10:16)
[2023-03-29] MEDS ORDERED: DOCUSATE NA 100 MG CAP PO SCH (10:30)
== END 2023-03-28 15:34 | disposition home or self-care (01) | DRG 603 ==
LOC: ER 15:33 → ERHOLD 20:19 → 2ND 22:28 → OBSVTOIN 03-27 13:22
PROVIDERS: ADMIT Internal Medicine Nephrology; ATTEND Hospitalist
DX: L03.115 Cellulitis of right lower limb (principal); N17.9 Acute kidney failure, unspecified; E78.5 Hyperlipidemia, unspecified; I12.9 Hypertensive chronic kidney disease with stage 1 through stage 4 chronic kidney disease, or unspecified chronic kidney disease; N18.2 Chronic kidney disease, stage 2 (mild); K21.9 Gastro-esophageal reflux disease without esophagitis; E83.52 Hypercalcemia; E53.8 Deficiency of other specified B group vitamins; F41.9 Anxiety disorder, unspecified; M54.9 Dorsalgia, unspecified; F17.210 Nicotine dependence, cigarettes, uncomplicated; R60.9 Edema, unspecified; R73.9 Hyperglycemia, unspecified; Z88.1 Allergy status to other antibiotic agents; Z88.5 Allergy status to narcotic agent; Z90.49 Acquired absence of other specified parts of digestive tract; Z98.51 Tubal ligation status
CPT/HCPCS: 36415; 80048; 80053; 81001; 82043; 82570; 82607; 82947; 83036; 83605; 83735; 83880; 84100; 84156; 84550; 85025; 85610; 85730; 87040; 93005; 93926; 93971; 96365; 96375; 99284; 99285; G0378; J0692; J0696; J1200; J1650; J2405; J2930; J3420; J7030; J7050